=== PATIENT | female | born 1945 | race Asian ===

== ENCOUNTER 2016-04-29 18:17 | Emergency (ER) | payer OTHER ==
[~2016-04-29 18:17] MED LIST: CENTRUM SILVER ULTR1 PO; MAGNESIUM250 M1 PO; METFORMIN HCL500 MG PO; OXYBUTYNIN CHLO15 MG PO; PERCOCET1 TA4 PO; PROPRANOLOL HCL20 MG PO; SUMATRIPTAN SU100 MG PO; TOPIRAMATE50 MG PO; ZOFRAN4 MG PO
== END 2016-04-29 19:46 | disposition home or self-care (01) ==
LOC: ED SRH 18:17
DX: R51 Headache (principal); R10.13 Epigastric pain; R11.2 Nausea with vomiting, unspecified; E11.9 Type 2 diabetes mellitus without complications; Z79.84 Long term (current) use of oral hypoglycemic drugs

== ENCOUNTER 2016-05-30 20:10 | Emergency (ER) | payer OTHER ==
--- NOTE | 2016-05-30 23:49 | DIAGNOSTIC IMAGING REPORT ---
PROCEDURE: XR CHEST 1 VIEW INDICATION: CHEST PAIN TECHNIQUE: Portable AP view (2110 hours). COMPARISON: None. FINDINGS: There is a 1.8 cm parenchymal density right lung base. Lungs are otherwise clear. Heart and mediastinum are normal. Thorax is normal. IMPRESSION: 1. There is a 1.8 cm density at the right lung base. While this could be artifactual or due to scarring, underlying lung nodule might be considered. Follow-up PA and lateral chest x-ray after the patient's acute illness (1-2 weeks) is recommended to confirm resolution. 2. Findings discussed with Dr. Raffaele Gutierrez.
--- NOTE | 2016-05-31 01:56 | ED CLINICAL REPORT ---
Clinical Report - Physicians/Mid Levels [facility] [address] [place] [address] 05/30/2016 20:10 Patient: BASIL LOMBARDI Time Seen: 20:58. Arrived- By private vehicle. Historian- patient, using an telephone exchange operator via language phone. HISTORY OF PRESENT ILLNESS Chief Complaint: CHEST PAIN. This started about 2 days ago and is still present. It was gradual in onset and has been constant and waxing/waning. At its maximum, severity described as 8 / 10. When seen in the E.D., severity described as 8 / 10. It is described as pressure and it is described as located in the central chest area and epigastric area and radiating to the upper back. The patient has had nausea. She has had mild vomiting. The vomiting has occurred only once. No blood-tinged emesis or coffee-grounds emesis. REVIEW OF SYSTEMS The patient has had chills and mild difficulty breathing. No fever, sweats, calf pain or pedal edema. She has had a moderate cough productive of thick, white sputum. No blood tinged sputum or frankly bloody sputum. She has had mild palpitations. It has been similar to previous symptoms. She has had a moderate global headache. The headache has been associated with photophobia. The headache has been similar to previous ones. The patient has a history of migraine headaches. All systems otherwise negative, except as recorded above. PAST HISTORY PCP - name unknown. Problems: Migraine Headache. Diabetes Mellitus. Hypertension. Headache. Medications: Rizatriptan Benzoate Oral 10 mg, 2x a day as needed (out). Tylenol Oral 650 mg, PRN. Benzonatate Oral 100 mg, 3x a day. Centrum Silver Oral 1 daily. Divalproex Sodium Oral (Tablet Delayed Release 500 mg) 1 tablet, daily as needed. Labetalol HCl Oral 200 mg, 2x a day. Magnesium Oral 250mg, daily. MetFORMIN HCl Oral 500 mg, 2x a day. Prochlorperazine Maleate Oral (Tablet 10 mg) 1 tablet, 3x a day. Allergies: No Known Drug Allergy. SOCIAL HISTORY Never smoker. No alcohol use or drug use. FAMILY HISTORY No history of heart disease or aortic aneurysm or dissection. Diabetes in first-degree relative (sibling and a child); cancer in first-degree relative (sibling and a child). No history of heart disease in first-degree relative. ADDITIONAL NOTES The nursing notes have been reviewed. PHYSICAL EXAM Vital Signs: 05/30/2016 20:33 BP: 179/93. HR: 76. RR: 18. O2 saturation: 99%. Temp: 98.1 F. Have been reviewed. Appearance: Alert. No acute distress. Eyes: Pupils equal, round and reactive to light. ENT: Pharynx normal. Neck: Normal inspection. Neck supple. CVS: Normal heart rate and rhythm. Heart sounds normal. Respiratory: No respiratory distress. Breath sounds normal. Abdomen: Soft. Moderate tenderness in the epigastric area (reproducing her chief complaint). Bowel sounds normal. No organomegaly. No mass. Back: Normal external inspection. Skin: Skin warm and dry. Normal skin color. Normal skin turgor. Extremities: Extremities exhibit normal ROM. No calf tenderness. No lower extremity edema. LABS, X-RAYS, AND EKG EKG: Normal EKG. Rate: 73. Prior EKG unavailable. The study has been independently viewed by me. Chest X-ray: (R basilar parenchymal density). The X-rays were interpreted contemporaneously by me and discussed with the radiologist. Laboratory Tests: CPK: (RANJAN: 05/31/2016 00:50) ( [facility] 05/31/2016 01:16) Final results Test Result Flag Units (Reference) CPK 39 U/L (24-260) TROPONIN I <0.05 L ng/mL (0.00-1.5) TROPONIN REFERENCE RANGE:<0.1 NEGATIVE0.1-1.5 INDETERMINANT>1.5 POSITIVE UA-Culture if indicated: (RANJAN: 05/30/2016 22:40) ( MsgRcvd 05/30/2016 23:02) Final results Test Result Flag Units (Reference) URINE COLOR YELLOW URINE APPEARANCE CLEAR URINE GLUCOSE NEGATIVE (NEGATIVE) URINE BILIRUBIN NEGATIVE (NEGATIVE) URINE KETONE NEGATIVE (NEGATIVE) URINE SPECIFIC GRAVITY <= 1.005 L (1.010-1.030) URINE PH 7.0 (5.0-8.0) URINE PROTEIN NEGATIVE (NEGATIVE) URINE UROBILINOGEN 0.2 EU/dL (0.2-1.0) URINE NITRITE NEGATIVE (NEGATIVE) URINE BLOOD NEGATIVE (NEGATIVE) URINE LEUK ESTERASE TRACE (NEGATIVE) URINE RBC RARE rbc/hpf (0-1) URINE WBC RARE wbc/hpf (0-1) URINE EPITHELIAL CELLS NONE SEEN EPI/hpf (0-5) URINE BACTERIA NONE SEEN (NONE SEEN) URINE COMMENT CULTURE INDICATED URINE CULTURES ARE SET-UP BASED ON THE FOLLOWING CRITERIA:POSITIVE NITRITEPOSITIVE LEUKOCYTE ESTERASEGREATER THAN 10 WHITE BLOOD CELLSMODERATE (2+) OR GREATER BACTERIA CBC w Diff: (RANJAN: 05/30/2016 21:00) ( MsgRcvd 05/30/2016 21:08) Final results Test Result Flag Units (Reference) WHITE BLOOD COUNT 7.1 K/uL (4.5-11.5) RED BLOOD COUNT 4.26 M/uL (4.00-5.20) HEMOGLOBIN 12.2 gm/dL (12.0-16.0) HEMATOCRIT 36.1 % (36.0-46.0) MEAN CELL VOLUME 85 fL (80-100) MEAN CORPUSCULAR HGB 29 pg (26-34) MEAN CORPUSCULAR HGB CONC 34 g/dL (31-37) RED CELL DISTRIBUTION WIDTH 12.9 % (11.6-14.8) PLATELET COUNT 238 K/uL (150-400) NEUTROPHIL % 41.3 L % (50-75) LYMPH % 49.4 H % (25-40) MONO % 7.8 % (3-14) EOSINOPHIL % 1.1 % (0-4) BASOPHIL % 0.4 % (0-2) [id number]: (RANJAN: 05/30/2016 21:00) ( MsgRcvd 05/30/2016 22:51) Final results Test Result Flag Units (Reference) D-DIMER QUANTITATIVE 0.40 ug/mLFEU (0.27-0.52) The primary value of this quantitative assay relates toits negative predictive value (i.e. exclusion) of pulmonaryembolism/deep vein thrombosis/DIC.Elevated levels of d-dimer may also occur with:, age, cancer, inflammation, liver disease,post-op, infection, hematoma, coronary disease, peripheralarteriopathy, bleeding disorders and thrombolytic treatment.Results should be correlated with other clinical andradiological data.Testing Methodology: Latex Immunoassay PT with INR: (RANJAN: 05/30/2016 21:00) ( [facility] 05/30/2016 21:15) Final results Test Result Flag Units (Reference) INR 0.9 (0.8-1.2) Low Intensity Therapy: INR 1.5-2.0 PT range 18.5-23.1Mod.Intensity Therapy: INR 2.0-3.0 PT range 23.1-31.5High Intensity Therapy: INR 2.5-3.5 PT range 27.4-35.5High Intensity Therapy 2: INR 3.0-4.0 PT range 31.5-39.3 APTT 28 SECONDS (24-34) BNP: (RANJAN: 05/30/2016 21:00) ( [facility] 05/30/2016 21:26) Final results Test Result Flag Units (Reference) B-TYPE NATRIURETIC PEPTIDE 42.0 pg/ml (5-100) CMP: (RANJAN: 05/30/2016 21:00) ( [facility] 05/30/2016 21:28) Final results Test Result Flag Units (Reference) GLUCOSE 145 H mg/dL (70-110) BUN 22 H mg/dL (7-18) CREATININE 0.9 mg/dL (0.6-1.3) Estimated GFR >60 mL/min Estimated GFR- >60 mL/min Note: Persistent reduction over 3 months in eGFR<60 mL/min/1.73 m2 defines CKD. Patients with eGFR values>=60 mL/min/1.73 m2 may also have CKD if evidence ofpersistent proteinuria. Additional information may be foundat www.[email or web address].org. SODIUM 139 mmol/L (136-145) POTASSIUM 4.0 mmol/L (3.5-5.1) CHLORIDE 104 mmol/L (98-107) CARBON DIOXIDE 25 mmol/L (21-32) CALCIUM 8.9 mg/dL (8.5-10.1) TOTAL PROTEIN 7.1 g/dL (6.4-8.2) ALBUMIN 3.6 g/dL (3.3-5.0) BILIRUBIN, TOTAL 0.3 mg/dL (0.0-1.0) ALKALINE PHOSPHATASE 88 U/L (46-116) AST (SGOT) 13 L U/L (15-37) ALT (SGPT) 18 U/L (12-78) CPK 38 U/L (24-260) TROPONIN I <0.05 L ng/mL (0.00-1.5) TROPONIN REFERENCE RANGE:<0.1 NEGATIVE0.1-1.5 INDETERMINANT>1.5 POSITIVE . PROGRESS AND PROCEDURES Course of Care: Patient is stable. Patient/family counseled. Old medical records reviewed. Disposition: Discharged. Condition: stable. CLINICAL IMPRESSION Pulmonary nodule. Acute headache. Atypical chest pain Hypertension. INSTRUCTIONS No driving or operating machinery while taking medication. Sedative medication was given during your visit. No strenuous activity. Rest. Avoid stimulants (such as cigarettes, coffee, cold medicines, sinus medicines, street drugs). (talk with your doctor about having a repeat chest x-ray in 2-3 weeks to evaluate for any interval change of the right lung base density as discussed.). Warnings: Further evaluation is necessary. GENERAL WARNINGS: Return or contact your physician immediately if your condition worsens or changes unexpectedly, if not improving as expected, or if other problems arise. Your Current Medications: CONTINUE TAKING THE FOLLOWING MEDICATIONS: Benzonatate Oral : 100 mg 3x a day. Centrum Silver Oral : 1 daily. Divalproex Sodium Oral : Tablet Delayed Release 500 mg, 1 tablet daily, prn. Labetalol HCl Oral : 200 mg 2x a day. Magnesium Oral : 250mg daily. MetFORMIN HCl Oral : 500 mg 2x a day. Prochlorperazine Maleate Oral : Tablet 10 mg, 1 tablet 3x a day. Rizatriptan Benzoate Oral : 10 mg 2x a day, prn, out. Tylenol Oral : 650 mg PRN. Prescription Medications: HCTZ 25 mg: Take 1 orally every 24 hours. Dispense fifteen (15). No refills. Follow-up: Follow up with your doctor Thursday in three days. Call for an appointment. Understanding of the discharge instructions verbalized by patient. (Electronically signed by Raffaele Gutierrez MD 06/02/2016 9:14)
--- NOTE | 2016-05-31 01:56 | ED NURSING NOTES ---
Clinical Report - Nurses [facility] [address] [place] [address] 05/30/2016 20:10 Patient: BASIL LOMBARDI TRIAGE Triage time 20:34. Acuity: LEVEL 3. Chief Complaint: DIZZINESS and (Chest pain). --20:43 Goldy Lee R.N. 20:33 05/30/16. BP: 179/93. HR: 76. RR: 18. O2 saturation: 99%. Temp: 98.1 F. Pain level now 12/02. --20:43 Goldy Lee R.N. Weight: 75.7 kg estimated. Height/Length: 63 inches Estimated. BMI: 29.6. --20:42 Goldy Lee R.N. Medications Benzonatate Oral 100 mg, 3x a day. Centrum Silver Oral 1 daily. Divalproex Sodium Oral (Tablet Delayed Release 500 mg) 1 tablet, daily as needed. Labetalol HCl Oral 200 mg, 2x a day. Magnesium Oral 250mg, daily. MetFORMIN HCl Oral 500 mg, 2x a day. Prochlorperazine Maleate Oral (Tablet 10 mg) 1 tablet, 3x a day. --20:41 Goldy Lee R.N. Rizatriptan Benzoate Oral 10 mg, 2x a day as needed (out). Tylenol Oral 650 mg, PRN. --20:41 Goldy Lee R.N. Allergies No Known Drug Allergy. --20:41 Goldy Lee R.N. History Arrived by private vehicle. Historian: family. Accompanied by family. This started yesterday. ( Pt came in with daughter complaining of chest pain that radiates into the back. Pt is also having dizziness with n/v. Pt is kenyan speaking). She has had nausea, a headache and vomiting. 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 SOCIAL HX: Never smoker. No alcohol use or drug use. --20:43 Goldy Lee R.N. PROBLEMS: Migraine Headache. Diabetes Mellitus. Hypertension. Headache. --20:41 Goldy Lee R.N. Interventions ID band on patient. To treatment room. --20:43 Goldy Lee R.N. NURSING PROGRESS NOTES equipment monitor phototypesetting, pulse oximeter and NIBP monitor placed on patient. Head of bed elevated. Two patient identifiers checked. Call light placed in reach. Side rails up x 1. Bed placed in lowest position. Brakes of bed on. KANDY COMA SCORE: [place] Coma Scale: 15- eyes open spontaneously (4); best verbal response- oriented x 4 (5); best motor response- obeys commands (6). --20:44 Goldy Lee R.N. EKG time: (2040 PM). EKG was ordered, performed by a tech and shown to the ED physician. --20:57 Dinorah Lopez 20:52 05/30/2016 Site #1 started via IV in the right antecubital space with an 20g angiocath, with aseptic technique and good blood return; one attempt. Blood drawn: rainbow set. Labeled in the presence of the patient and sent to the lab. Saline lock flushed with 10 mL saline. --21:02 Fiordaliza Staley R.N. 21:07 05/30/2016 Aspirin PO 325 mg given. Allergies verified and confirmed 5 rights. --21:07 Fiordaliza Staley R.N. 22:06 05/30/2016 mylanta 30ml * PO 30 --22:32 Fiordaliza Staley R.N. 22:07 05/30/2016 vis lidocaine * PO 15 --22:32 Fiordaliza Staley R.N. 22:30 05/30/16. Care transferred and report received (from ANGELA Mancera). --22:30 Toshia Faith R.N. Care transferred and report given (ANGELA Mancini). --22:33 Fiordaliza Staley R.N. 22:35 05/30/16. Patient ID band checked for patient name and birthdate: patient confirmed. Instructions provided to collect clean catch urine and patient verbalized understanding. Clean catch urine collected with return of yellow-colored clear urine; sample sent to lab for urinalysis and culture. Specimen labeled in the presence of the patient. --22:51 Toshia Faith R.N. 23:10 05/30/16. BP: 197/106. HR: 78. RR: 20. O2 saturation: 98% on nasal cannula at 2 liters/minute. Pain level now: 10/02. --23:10 Steffany Crook 23:10 05/30/2016 Acetaminophen (APAP) PO Tablets 1000 mg given. Allergies verified and confirmed 5 rights. --23:10 Steffany Crook 00:15 05/31/16. Reassessment after medication administered. She has had no adverse reaction. Overall patient status is the same- she states feels the same. GENERAL / NEURO / PSYCH: A family member reports headache that is moderate in severity and is constant (states complains of persisting headache). --00:15 Toshia Faith R.NRah 00:48 05/31/2016 Clonidine PO Tablets 0.2 mg given. Allergies verified and confirmed 5 rights. --00:51 Toshia Faith R.NRah 00:49 05/31/2016 Zofran (Ondansetron HCl) IVP 4 mg given over 1 minute(s) via site #1. Allergies verified and confirmed 5 rights. IV patency established. IV site checked: no pain, redness, or swelling. IV flushed thoroughly pre- and post-medication administration. IVP given by RN. --00:51 Toshia Faith R.NRah 00:50 05/31/2016 Morphine IVP 3 mg given over 1 minute(s) via site #1. Allergies verified, confirmed 5 rights and sedative warning given to the patient and patient's family. IV patency established. IV site checked: no pain, redness, or swelling. IV flushed thoroughly pre- and post-medication administration. IVP given by RN. --00:51 Toshia Faith R.NRah 00:56 05/31/16. ( Medicated for pain. Family at bedside to confirm and allergies,. lab staff collected additional blood). --00:56 Toshia Faith R.NRah 01:13 05/31/16. BP: 159/89. HR: 90. RR: 18. O2 saturation: 95%. --01:13 Toshia Faith R.N. 01:14 05/31/16. Reassessment after medication administered. She has had no adverse reaction. Overall patient status is improved- she states feels better. GENERAL / NEURO / PSYCH: The patient reports headache is still present but improving and is currently moderate in severity. --01:14 Toshia Faith R.N. 01:51 05/31/16. BP: 162/92. HR: 84. RR: 16. O2 saturation: 94%. --01:51 Toshia Faith R.N. DISPOSITION / DISCHARGE 02:14 05/31/2016 Site #1 removed upon discharge. Catheter intact. Pressure dressing applied. --02:14 Toshia Faith R.N. 02:15 05/31/16. Condition at departure: improved and stable. The goals identified in the patient's plan of care were met. Ability to learn limited by language barrier; teaching performed with the patient and family via family member interpreting. Reviewed medication(s) side effects, precautions, dosing and course information. Prescription(s) given to the patient. Reviewed referral to a primary care physician for followup. Summary of care provided to patient via paper. Patient and family verbalized understanding. Written instructions provided in Yakut and Italian. The patient was discharged home. She left the Emergency Department ambulatory, via private vehicle and (declined wheelchair). Family member driving. FALL RISK ASSESSMENT: Fall risk assessment completed. No fall risk identified. --02:15 Toshia Faith R.N. 02:15 05/31/16. Pain level now 04/04. --02:15 Toshia Faith R.N. 01:50 05/31/16. BP: 162/92. HR: 84. RR: 16. O2 saturation: 94%. 01:12 05/31/16. BP: 159/89. HR: 90. RR: 18. O2 saturation: 95%. 00:56 05/31/16. BP: 172/95. HR: 74. RR: 20. O2 saturation: 95%. Pain level now: 8/10. 23:10 05/30/16. BP: 197/106. HR: 78. RR: 20. O2 saturation: 98% on nasal cannula at 2 liters/minute. Pain level now: 10/02. 22:30 05/30/16. BP: 180/94. HR: 72. RR: 18. O2 saturation: 99%. 20:33 05/30/16. BP: 179/93. HR: 76. RR: 18. O2 saturation: 99%. Temp: 98.1 F. Pain level now 12/02. --02:15 Toshia Faith R.N. Departure time: 02:May 31 2016. --02:15 Toshia Faith R.N. Locked/Released at 05/31/2016 2:15 by Toshia Faith R.N.
--- NOTE | 2016-05-31 01:56 | ED NURSING NOTES ---
Clinical Report - Nurses [facility] [address] [place] [place] [address] 05/30/2016 20:10 Patient: BASIL LOMBARDI TRIAGE Triage time 20:34. Acuity: LEVEL 3. Chief Complaint: DIZZINESS and (Chest pain). --20:43 Goldy Lee R.N. 20:33 05/30/16. BP: 179/93. HR: 76. RR: 18. O2 saturation: 99%. Temp: 98.1 F. Pain level now 12/02. --20:43 Goldy Lee R.N. Weight: 75.7 kg estimated. Height/Length: 63 inches Estimated. BMI: 29.6. --20:42 Goldy Lee R.N. Medications Benzonatate Oral 100 mg, 3x a day. Centrum Silver Oral 1 daily. Divalproex Sodium Oral (Tablet Delayed Release 500 mg) 1 tablet, daily as needed. Labetalol HCl Oral 200 mg, 2x a day. Magnesium Oral 250mg, daily. MetFORMIN HCl Oral 500 mg, 2x a day. Prochlorperazine Maleate Oral (Tablet 10 mg) 1 tablet, 3x a day. --20:41 Goldy Lee R.N. Rizatriptan Benzoate Oral 10 mg, 2x a day as needed (out). Tylenol Oral 650 mg, PRN. --20:41 Goldy Lee R.N. Allergies No Known Drug Allergy. --20:41 Goldy Lee R.N. History Arrived by private vehicle. Historian: family. Accompanied by family. This started yesterday. ( Pt came in with daughter complaining of chest pain that radiates into the back. Pt is also having dizziness with n/v. Pt is botswanan speaking). She has had nausea, a headache and vomiting. 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 SOCIAL HX: Never smoker. No alcohol use or drug use. --20:43 Goldy Lee R.N. PROBLEMS: Migraine Headache. Diabetes Mellitus. Hypertension. Headache. --20:41 Goldy Lee R.N. Interventions ID band on patient. To treatment room. --20:43 Goldy Lee R.N. NURSING PROGRESS NOTES personnel monitor, pulse oximeter and NIBP monitor placed on patient. Head of bed elevated. Two patient identifiers checked. Call light placed in reach. Side rails up x 1. Bed placed in lowest position. Brakes of bed on. KANDY COMA SCORE: [place] Coma Scale: 15- eyes open spontaneously (4); best verbal response- oriented x 4 (5); best motor response- obeys commands (6). --20:44 Goldy Lee R.N. EKG time: (2040 PM). EKG was ordered, performed by a tech and shown to the ED physician. --20:57 Dinorah Lopez 20:52 05/30/2016 Site #1 started via IV in the right antecubital space with an 20g angiocath, with aseptic technique and good blood return; one attempt. Blood drawn: rainbow set. Labeled in the presence of the patient and sent to the lab. Saline lock flushed with 10 mL saline. --21:02 Fiordaliza Staley R.N. 21:07 05/30/2016 Aspirin PO 325 mg given. Allergies verified and confirmed 5 rights. --21:07 Fiordaliza Staley R.N. 22:06 05/30/2016 mylanta 30ml * PO 30 --22:32 Fiordaliza Staley R.N. 22:07 05/30/2016 vis lidocaine * PO 15 --22:32 Fiordaliza Staley R.N. 22:30 05/30/16. Care transferred and report received (from ANGELA Mancera). --22:30 Toshia Faith R.N. Care transferred and report given (ANGELA Mancini). --22:33 Fiordaliza Staley R.N. 22:35 05/30/16. Patient ID band checked for patient name and birthdate: patient confirmed. Instructions provided to collect clean catch urine and patient verbalized understanding. Clean catch urine collected with return of yellow-colored clear urine; sample sent to lab for urinalysis and culture. Specimen labeled in the presence of the patient. --22:51 Toshia Faith R.N. 23:10 05/30/16. BP: 197/106. HR: 78. RR: 20. O2 saturation: 98% on nasal cannula at 2 liters/minute. Pain level now: 10/02. --23:10 Steffany Crook 23:10 05/30/2016 Acetaminophen (APAP) PO Tablets 1000 mg given. Allergies verified and confirmed 5 rights. --23:10 Steffany Crook 00:15 05/31/16. Reassessment after medication administered. She has had no adverse reaction. Overall patient status is the same- she states feels the same. GENERAL / NEURO / PSYCH: A family member reports headache that is moderate in severity and is constant (states complains of persisting headache). --00:15 Toshia Faith R.NRah 00:48 05/31/2016 Clonidine PO Tablets 0.2 mg given. Allergies verified and confirmed 5 rights. --00:51 Toshia Faith R.NRah 00:49 05/31/2016 Zofran (Ondansetron HCl) IVP 4 mg given over 1 minute(s) via site #1. Allergies verified and confirmed 5 rights. IV patency established. IV site checked: no pain, redness, or swelling. IV flushed thoroughly pre- and post-medication administration. IVP given by RN. --00:51 Toshia Faith R.NRah 00:50 05/31/2016 Morphine IVP 3 mg given over 1 minute(s) via site #1. Allergies verified, confirmed 5 rights and sedative warning given to the patient and patient's family. IV patency established. IV site checked: no pain, redness, or swelling. IV flushed thoroughly pre- and post-medication administration. IVP given by RN. --00:51 Toshia Faith R.NRah 00:56 05/31/16. ( Medicated for pain. Family at bedside to confirm and allergies,. lab staff collected additional blood). --00:56 Toshia Faith R.NRah 01:13 05/31/16. BP: 159/89. HR: 90. RR: 18. O2 saturation: 95%. --01:13 Toshia Faith R.N. 01:14 05/31/16. Reassessment after medication administered. She has had no adverse reaction. Overall patient status is improved- she states feels better. GENERAL / NEURO / PSYCH: The patient reports headache is still present but improving and is currently moderate in severity. --01:14 Toshia Faith R.N. 01:51 05/31/16. BP: 162/92. HR: 84. RR: 16. O2 saturation: 94%. --01:51 Toshia Faith R.N. DISPOSITION / DISCHARGE 02:14 05/31/2016 Site #1 removed upon discharge. Catheter intact. Pressure dressing applied. --02:14 Toshia Faith R.N. 02:15 05/31/16. Condition at departure: improved and stable. The goals identified in the patient's plan of care were met. Ability to learn limited by language barrier; teaching performed with the patient and family via family member interpreting. Reviewed medication(s) side effects, precautions, dosing and course information. Prescription(s) given to the patient. Reviewed referral to a primary care physician for followup. Summary of care provided to patient via paper. Patient and family verbalized understanding. Written instructions provided in [place] and Bulgarian. The patient was discharged home. She left the Emergency Department ambulatory, via private vehicle and (declined wheelchair). Family member driving. FALL RISK ASSESSMENT: Fall risk assessment completed. No fall risk identified. --02:15 Toshia Faith R.N. 02:15 05/31/16. Pain level now 04/04. --02:15 Toshia Faith R.N. 01:50 05/31/16. BP: 162/92. HR: 84. RR: 16. O2 saturation: 94%. 01:12 05/31/16. BP: 159/89. HR: 90. RR: 18. O2 saturation: 95%. 00:56 05/31/16. BP: 172/95. HR: 74. RR: 20. O2 saturation: 95%. Pain level now: 8/10. 23:10 05/30/16. BP: 197/106. HR: 78. RR: 20. O2 saturation: 98% on nasal cannula at 2 liters/minute. Pain level now: 10/02. 22:30 05/30/16. BP: 180/94. HR: 72. RR: 18. O2 saturation: 99%. 20:33 05/30/16. BP: 179/93. HR: 76. RR: 18. O2 saturation: 99%. Temp: 98.1 F. Pain level now 12/02. --02:15 Toshia Faith R.N. Departure time: 02:May 31 2016. --02:15 Toshia Faith R.N. Locked/Released at 05/31/2016 2:15 by Toshia Faith R.N.
--- NOTE | 2016-05-31 01:56 | ED CLINICAL REPORT ---
Clinical Report - Physicians/Mid Levels [facility] [address] [place] [address] 05/30/2016 20:10 Patient: BASIL LOMBARDI Time Seen: 20:58. Arrived- By private vehicle. Historian- patient, using an line driver via language phone. HISTORY OF PRESENT ILLNESS Chief Complaint: CHEST PAIN. This started about 2 days ago and is still present. It was gradual in onset and has been constant and waxing/waning. At its maximum, severity described as 8 / 10. When seen in the E.D., severity described as 8 / 10. It is described as pressure and it is described as located in the central chest area and epigastric area and radiating to the upper back. The patient has had nausea. She has had mild vomiting. The vomiting has occurred only once. No blood-tinged emesis or coffee-grounds emesis. REVIEW OF SYSTEMS The patient has had chills and mild difficulty breathing. No fever, sweats, calf pain or pedal edema. She has had a moderate cough productive of thick, white sputum. No blood tinged sputum or frankly bloody sputum. She has had mild palpitations. It has been similar to previous symptoms. She has had a moderate global headache. The headache has been associated with photophobia. The headache has been similar to previous ones. The patient has a history of migraine headaches. All systems otherwise negative, except as recorded above. PAST HISTORY PCP - name unknown. Problems: Migraine Headache. Diabetes Mellitus. Hypertension. Headache. Medications: Rizatriptan Benzoate Oral 10 mg, 2x a day as needed (out). Tylenol Oral 650 mg, PRN. Benzonatate Oral 100 mg, 3x a day. Centrum Silver Oral 1 daily. Divalproex Sodium Oral (Tablet Delayed Release 500 mg) 1 tablet, daily as needed. Labetalol HCl Oral 200 mg, 2x a day. Magnesium Oral 250mg, daily. MetFORMIN HCl Oral 500 mg, 2x a day. Prochlorperazine Maleate Oral (Tablet 10 mg) 1 tablet, 3x a day. Allergies: No Known Drug Allergy. SOCIAL HISTORY Never smoker. No alcohol use or drug use. FAMILY HISTORY No history of heart disease or aortic aneurysm or dissection. Diabetes in first-degree relative (sibling and a child); cancer in first-degree relative (sibling and a child). No history of heart disease in first-degree relative. ADDITIONAL NOTES The nursing notes have been reviewed. PHYSICAL EXAM Vital Signs: 05/30/2016 20:33 BP: 179/93. HR: 76. RR: 18. O2 saturation: 99%. Temp: 98.1 F. Have been reviewed. Appearance: Alert. No acute distress. Eyes: Pupils equal, round and reactive to light. ENT: Pharynx normal. Neck: Normal inspection. Neck supple. CVS: Normal heart rate and rhythm. Heart sounds normal. Respiratory: No respiratory distress. Breath sounds normal. Abdomen: Soft. Moderate tenderness in the epigastric area (reproducing her chief complaint). Bowel sounds normal. No organomegaly. No mass. Back: Normal external inspection. Skin: Skin warm and dry. Normal skin color. Normal skin turgor. Extremities: Extremities exhibit normal ROM. No calf tenderness. No lower extremity edema. LABS, X-RAYS, AND EKG EKG: Normal EKG. Rate: 73. Prior EKG unavailable. The study has been independently viewed by me. Chest X-ray: (R basilar parenchymal density). The X-rays were interpreted contemporaneously by me and discussed with the radiologist. Laboratory Tests: CPK: (RANJAN: 05/31/2016 00:50) ( [facility] Final results Test Result Flag Units (Reference) CPK 39 U/L (24-260) TROPONIN I <0.05 L ng/mL (0.00-1.5) TROPONIN REFERENCE RANGE:<0.1 NEGATIVE0.1-1.5 INDETERMINANT>1.5 POSITIVE UA-Culture if indicated: (RANJAN: 05/30/2016 22:40) ( MsgRcvd 05/30/2016 23:02) Final results Test Result Flag Units (Reference) URINE COLOR YELLOW URINE APPEARANCE CLEAR URINE GLUCOSE NEGATIVE (NEGATIVE) URINE BILIRUBIN NEGATIVE (NEGATIVE) URINE KETONE NEGATIVE (NEGATIVE) URINE SPECIFIC GRAVITY <= 1.005 L (1.010-1.030) URINE PH 7.0 (5.0-8.0) URINE PROTEIN NEGATIVE (NEGATIVE) URINE UROBILINOGEN 0.2 EU/dL (0.2-1.0) URINE NITRITE NEGATIVE (NEGATIVE) URINE BLOOD NEGATIVE (NEGATIVE) URINE LEUK ESTERASE TRACE (NEGATIVE) URINE RBC RARE rbc/hpf (0-1) URINE WBC RARE wbc/hpf (0-1) URINE EPITHELIAL CELLS NONE SEEN EPI/hpf (0-5) URINE BACTERIA NONE SEEN (NONE SEEN) URINE COMMENT CULTURE INDICATED URINE CULTURES ARE SET-UP BASED ON THE FOLLOWING CRITERIA:POSITIVE NITRITEPOSITIVE LEUKOCYTE ESTERASEGREATER THAN 10 WHITE BLOOD CELLSMODERATE (2+) OR GREATER BACTERIA CBC w Diff: (RANJAN: 05/30/2016 21:00) ( MsgRcvd 05/30/2016 21:08) Final results Test Result Flag Units (Reference) WHITE BLOOD COUNT 7.1 K/uL (4.5-11.5) RED BLOOD COUNT 4.26 M/uL (4.00-5.20) HEMOGLOBIN 12.2 gm/dL (12.0-16.0) HEMATOCRIT 36.1 % (36.0-46.0) MEAN CELL VOLUME 85 fL (80-100) MEAN CORPUSCULAR HGB 29 pg (26-34) MEAN CORPUSCULAR HGB CONC 34 g/dL (31-37) RED CELL DISTRIBUTION WIDTH 12.9 % (11.6-14.8) PLATELET COUNT 238 K/uL (150-400) NEUTROPHIL % 41.3 L % (50-75) LYMPH % 49.4 H % (25-40) MONO % 7.8 % (3-14) EOSINOPHIL % 1.1 % (0-4) BASOPHIL % 0.4 % (0-2) [id number]: (RANJAN: 05/30/2016 21:00) ( MsgRcvd 05/30/2016 22:51) Final results Test Result Flag Units (Reference) D-DIMER QUANTITATIVE 0.40 ug/mLFEU (0.27-0.52) The primary value of this quantitative assay relates toits negative predictive value (i.e. exclusion) of pulmonaryembolism/deep vein thrombosis/DIC.Elevated levels of d-dimer may also occur with:, age, cancer, inflammation, liver disease,post-op, infection, hematoma, coronary disease, peripheralarteriopathy, bleeding disorders and thrombolytic treatment.Results should be correlated with other clinical andradiological data.Testing Methodology: Latex Immunoassay PT with INR: (RANJAN: 05/30/2016 21:00) ( [facility] 05/30/2016 21:15) Final results Test Result Flag Units (Reference) INR 0.9 (0.8-1.2) Low Intensity Therapy: INR 1.5-2.0 PT range 18.5-23.1Mod.Intensity Therapy: INR 2.0-3.0 PT range 23.1-31.5High Intensity Therapy: INR 2.5-3.5 PT range 27.4-35.5High Intensity Therapy 2: INR 3.0-4.0 PT range 31.5-39.3 APTT 28 SECONDS (24-34) BNP: (RANJAN: 05/30/2016 21:00) ( [facility] 05/30/2016 21:26) Final results Test Result Flag Units (Reference) B-TYPE NATRIURETIC PEPTIDE 42.0 pg/ml (5-100) CMP: (RANJAN: 05/30/2016 21:00) ( [facility] 05/30/[facility] 21:28) Final results Test Result Flag Units (Reference) GLUCOSE 145 H mg/dL (70-110) BUN 22 H mg/dL (7-18) CREATININE 0.9 mg/dL (0.6-1.3) Estimated GFR >60 mL/min Estimated GFR- >60 mL/min Note: Persistent reduction over 3 months in eGFR<60 mL/min/1.73 m2 defines CKD. Patients with eGFR values>=60 mL/min/1.73 m2 may also have CKD if evidence ofpersistent proteinuria. Additional information may be foundat www.kidney.org. SODIUM 139 mmol/L (136-145) POTASSIUM 4.0 mmol/L (3.5-5.1) CHLORIDE 104 mmol/L (98-107) CARBON DIOXIDE 25 mmol/L (21-32) CALCIUM 8.9 mg/dL (8.5-10.1) TOTAL PROTEIN 7.1 g/dL (6.4-8.2) ALBUMIN 3.6 g/dL (3.3-5.0) BILIRUBIN, TOTAL 0.3 mg/dL (0.0-1.0) ALKALINE PHOSPHATASE 88 U/L (46-116) AST (SGOT) 13 L U/L (15-37) ALT (SGPT) 18 U/L (12-78) CPK 38 U/L (24-260) TROPONIN I <0.05 L ng/mL (0.00-1.5) TROPONIN REFERENCE RANGE:<0.1 NEGATIVE0.1-1.5 INDETERMINANT>1.5 POSITIVE . PROGRESS AND PROCEDURES Course of Care: Patient is stable. Patient/family counseled. Old medical records reviewed. Disposition: Discharged. Condition: stable. CLINICAL IMPRESSION Pulmonary nodule. Acute headache. Atypical chest pain Hypertension. INSTRUCTIONS No driving or operating machinery while taking medication. Sedative medication was given during your visit. No strenuous activity. Rest. Avoid stimulants (such as cigarettes, coffee, cold medicines, sinus medicines, street drugs). (talk with your doctor about having a repeat chest x-ray in 2-3 weeks to evaluate for any interval change of the right lung base density as discussed.). Warnings: Further evaluation is necessary. GENERAL WARNINGS: Return or contact your physician immediately if your condition worsens or changes unexpectedly, if not improving as expected, or if other problems arise. Your Current Medications: CONTINUE TAKING THE FOLLOWING MEDICATIONS: Benzonatate Oral : 100 mg 3x a day. Centrum Silver Oral : 1 daily. Divalproex Sodium Oral : Tablet Delayed Release 500 mg, 1 tablet daily, prn. Labetalol HCl Oral : 200 mg 2x a day. Magnesium Oral : 250mg daily. MetFORMIN HCl Oral : 500 mg 2x a day. Prochlorperazine Maleate Oral : Tablet 10 mg, 1 tablet 3x a day. Rizatriptan Benzoate Oral : 10 mg 2x a day, prn, out. Tylenol Oral : 650 mg PRN. Prescription Medications: HCTZ 25 mg: Take 1 orally every 24 hours. Dispense fifteen (15). No refills. Follow-up: Follow up with your doctor Thursday in three days. Call for an appointment. Understanding of the discharge instructions verbalized by patient. (Electronically signed by Raffaele Gutierrez MD 06/02/2016 9:14)
--- NOTE | 2016-05-31 01:56 | ED ORDER SUMMARY ---
..... 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 per protocol) (Ack 20:34 SRedmond) (20:44 TLewis R.N.) EKG - ER Stat (20:33 05/30/2016 TLewis R.N. per protocol) (Ack 20:34 SRedmond) (20:44 TLewis R.N.) Chest 1V Urgent (20:59 05/30/2016 Karlee POLLARD) (Ack 21:07 Julien) (21:07 Escobarts R.N.) CBC w Diff Urgent (20:59 05/30/2016 Karlee POLLARD) (21:01 Ha R.N.) CMP Urgent (20:59 05/30/2016 Karlee POLLARD) (21:01 Ha R.N.) UA-Culture if indicated Urgent (20:59 05/30/2016 Karlee POLLARD) (Ack 21:07 SRespenser) (0:19 Vernon R.N.) PTT Urgent (20:59 05/30/2016 Karlee POLLARD) (21:01 Ha R.N.) PT with INR Urgent (20:59 05/30/2016 Karlee POLLARD) (21:01 Ha R.N.) CPK Urgent (20:59 05/30/2016 Karlee POLLARD) (21:01 Ha R.N.) Troponin-I Urgent (20:59 05/30/2016 Karlee POLLARD) (21:01 Ha R.N.) BNP Urgent (20:59 05/30/2016 Karlee POLLARD) (21:01 Ha R.N.) Oxygen (2 L/min) (NC) (20:59 05/30/2016 Karlee POLLARD) (21:01 SRoberts R.N.) Pulse oximeter (20:59 05/30/2016 Karlee POLLARD) (21:01 SRoberts R.N.) D-Dimer Urgent (22:37 05/30/2016 Karlee POLLARD) (Ack 22:38 SRedmond) (1:27 EInderbitzen R.N.) Troponin-I (2nd set) Urgent (00:33 05/31/2016 Karlee POLLARD) (Ack 0:35 SRedmond) (1:27 EInderbitzen R.N.) CPK (2nd set) Urgent (00:33 05/31/2016 Karlee POLLARD) (Ack 0:35 SRedmond) (1:27 EInderbitzen R.N.) Valproic Acid (Depakene) Urgent (01:25 05/31/2016 Karlee POLLARD) (1:27 EInderbitzen R.N.) MEDICATION ORDERS: Aspirin PO 325 mg (NOW) (20:59 05/30/2016 Karlee POLLARD) (Ack 21:03 SRoberts R.N.) (21:07 SRoberts R.N.) GI Cocktail WHITE PO 30 mL with Lidocaine Viscous Mouth/Throat 15 mL, Maalox Plus Oral 15 mL (22:13 05/30/2016 Karlee POLLARD) (Ack 22:29 EInderbitzen R.N.) (22:32 SRoberts R.N.) Acetaminophen PO 1,000 mg (NOW) (23:06 05/30/2016 Karlee POLLARD) (Ack 23:07 HSoule) (23:10 HSoule) Clonidine PO 0.2 mg (NOW) (00:34 05/31/2016 Karlee POLLARD) (Ack 0:42 EInderbitzen R.N.) (0:51 EInderbitzen R.N.) IV FLUIDS: IV Saline Lock (20:59 05/30/2016 Karlee POLLARD) (Ack 21:01 SRoberts R.N.) (21:02 SRoberts R.N.) Morphine IV 3 mg (HIGH ALERT MEDICATION, NOW) (00:34 05/31/2016 Karlee POLLARD) (Ack 0:42 EInderbitzen R.N.) (0:51 EInderareliszen R.N.) Zofran IV 4 mg (NOW) (00:34 05/31/2016 Karlee POLLARD) (Ack 0:42 EInderbitzen R.N.) (0:51 EInderbitzen R.N.) ORDER SHEET NOTES: [Electronically signed by Toshia Faith R.N. (02:15 05/31/2016)] [Electronically signed by Raffaele Gutierrez MD (09:14 06/02/2016)] [Electronically locked/signed by Toshia Fatih R.N. (02:15 05/31/2016)]
--- NOTE | 2016-06-02 09:14 | ED MAR SUMMARY ---
..... Medication Administration Record [facility] [address] [place] [address] Patient: BASIL LOMBARDI Visit ID: [id number] 71y, F Weight: 75.7 kg Height/Length: 63 in BMI: 29.6 ALLERGIES: No Known Drug Allergy Given 21:07 05/30/2016 Fiordaliza Staley R.N. Medication Administered: ASPIRIN [PO], Dose: 325 mg PO. Medication Ordered: Aspirin PO 325 mg (NOW). Given 22:05/30/2016 Fiordaliza Staley R.N. Medication Administered: mylanta 30ml *, Dose: 30 * PO. Medication Ordered: GI Cocktail WHITE PO 30 mL with Lidocaine Viscous Mouth/Throat 15 mL, Maalox Plus Oral 15 mL. Given 22:05/30/2016 Fiordaliza Staley R.N. Medication Administered: vis lidocaine *, Dose: 15 * PO. Medication Ordered: GI Cocktail WHITE PO 30 mL with Lidocaine Viscous Mouth/Throat 15 mL, Maalox Plus Oral 15 mL. Given 23:10 05/30/2016 Steffany Crook, Medication Administered: ACETAMINOPHEN [PO] (APAP), Dose: 1000 mg Tablets PO. Medication Ordered: Acetaminophen PO 1,000 mg (NOW). Given 00:48 05/31/2016 Toshia Faith R.N. Medication Administered: CLONIDINE [PO], Dose: 0.2 mg Tablets PO. Medication Ordered: Clonidine PO 0.2 mg (NOW). Given 00:49 05/31/2016 Toshia Faith R.N. Medication Administered: ZOFRAN [IVP] (ONDANSETRON HCL), Dose: 4 mg IVP over 1 minute(s), Site: #1 right AC. Medication Ordered: Zofran IV 4 mg (NOW). Given 00:50 05/31/2016 Toshia aFith R.N. Medication Administered: MORPHINE [IVP], Dose: 3 mg IVP over 1 minute(s), Site: #1 right AC. Medication Ordered: Morphine IV 3 mg (HIGH ALERT MEDICATION, NOW).
--- NOTE | 2016-06-02 09:14 | ED DISCHARGE INSTRUCTIONS ---
Patient: BASIL LOMBARDI General Instructions [facility] VisitID: [id number] [place] [address] 71y, F Registration Date/Time: 05/30/2016 Pulmonary nodule. Acute headache. Atypical chest pain Hypertension. INSTRUCTIONS No driving or operating machinery while taking medication. Sedative medication was given during your visit. No strenuous activity. Rest. Avoid stimulants (such as cigarettes, coffee, cold medicines, sinus medicines, street drugs). (talk with your doctor about having a repeat chest x-ray in 2-3 weeks to evaluate for any interval change of the right lung base density as discussed.). Warnings: Further evaluation is necessary. GENERAL WARNINGS: Return or contact your physician immediately if your condition worsens or changes unexpectedly, if not improving as expected, or if other problems arise. Your Current Medications: CONTINUE TAKING THE FOLLOWING MEDICATIONS: Benzonatate Oral : 100 mg 3x a day. Centrum Silver Oral : 1 daily. Divalproex Sodium Oral : Tablet Delayed Release 500 mg, 1 tablet daily, prn. Labetalol HCl Oral : 200 mg 2x a day. Magnesium Oral : 250mg daily. MetFORMIN HCl Oral : 500 mg 2x a day. Prochlorperazine Maleate Oral : Tablet 10 mg, 1 tablet 3x a day. Rizatriptan Benzoate Oral : 10 mg 2x a day, prn, out. Tylenol Oral : 650 mg PRN. Prescription Medications: HCTZ 25 mg: Take 1 orally every 24 hours. Dispense fifteen (15). No refills. Follow-up: Follow up with your doctor Thursday in three days. Call for an appointment. Understanding of the discharge instructions verbalized by patient. ADDITIONAL INFORMATION Chest Pain, Uncertain Cause Chest pain can happen for a number of reasons. Sometimes the cause can not be determined. If yourcondition does not seem serious, and your pain does not appear to be coming from your heart, your doctor may recommend watching it closely. Sometimes the signs of a serious problem take more time to appear. Therefore, watch for the warning signs listed below. Home care After your visit, follow these recommendations: Rest today and avoid strenuous activity. Take any prescribed medicine as directed. Follow-up care Follow up with your doctor or this facility as instructed or if you do not start to feel better within 24 hours. Call 911 Get immediate medical attention if any of the following occur: A change in the type of pain: if it feels different, becomes more severe, lasts longer, or begins to spread into your shoulder, arm, neck, jaw or back Shortness of breath or increased pain with breathing Weakness, dizziness, or fainting Rapid heart beat Get prompt medical attention Call your doctor right away if any of the following occur: Cough with dark colored sputum (phlegm) or blood Fever of 100.4F(38C) or higher, or as directed by your health care provider Swelling, pain or redness in one leg Pulmonary Nodule A pulmonary nodule is a finding on a chest x-ray. It is usually found on an x-ray taken for other reasons.It is a single lesion up to about an inch in size, surrounded by normal lung tissue. Most nodules are benign (non-cancerous). However, a nodule could be an early stage of primary lung cancer; or, it may be a sign of cancer that has spread from another part of the body (metastatic). Once a nodule is found on a chest x-ray, further testing is needed to determine if it is benign or outpatient to diagnose your nodule. Comparison of todays x-ray to prior x-rays Chest CT scan Bronchoscopy (a procedure that allows the doctor to see the air passages inside the lung) Needle biopsy Test Results: If your nodule proves to be benign, continued follow up over the next five years is usually advised. If the tests cannot tell if your nodule is benign or malignant, then, surgery may be advised. If your tests show your nodule is definitely malignant, surgery will probably be advised. The best survival rates from lung cancer occur when the primary tumor is small (less than one inch). Follow your doctor's advice regarding the timing of further testing. Prompt treatment gives the best chance for curing lung cancer. Prevention Smoking remains one of the greatest risk factors for lung cancer. If you smoke, it is essential that you quit in order to lower your risk of lung cancer. Talk to your doctor about ways to help you quit. Visit the following links for more information: www.smokefree.gov/pubs/clearing_the_air.pdf www.smokefree.gov www.quitnet.com Home Care: Most patients with a pulmonary nodule will have no symptoms. Therefore, no special home care is required.You may resume your usual activities and diet. Follow Up with your doctor or as advised by our staff. Keep your appointments for further testing. You can get more information about lung cancer from the following: [place] [employer] [phone] lung.org National Cancer [place] [phone] www.cancer.gov Return Promptly or contact your doctor if any of the following occur: Fever of 100.4F (38C) or higher, or as directed by your healthcare provider Coughing up blood Chest pain or shortness of breath Unintended weight change Migraine Headache Migraine headaches are related to changes in blood flow to the brain. This causes throbbing or constant pain on one or both sides of the head. The pain may last from a few hours to several days. There is usually nausea, vomiting, sensitivity to light and sound, and blurred vision. A migraine attack may be triggered by emotional stress, hormone changes during the menstrual cycle, oral contraceptives, alcohol use, certain foods containing tyramine, eye strain, weather changes, missing meals, or too little or too much sleep. Home Care For This Headache: 1) If you were given pain medicine for this headache, do not drive yourself home . Arrange for a ride, instead. When you get home, try to sleep. You should feel much better when you wake up. 2) Migraine headaches may improve with an ice pack on the forehead or at the base of the skull. Heat to the back of your neck may relieve any neck spasm. 3) Drink only clear liquids or eat a very light diet to avoid nausea/vomiting until symptoms improve. Preventing Future Headaches: 1) Pay attention to those factors that seem to trigger your headache. Try to avoid them when you can. If you have frequent headaches, it is useful to keep a diary of what you were doing, feeling or eating in the hours before each attack. Show this to your doctor to help find the cause of your headaches. a) If you feel that stress is a factor in your headaches, look at the sources of stress in your life. Find ways to release the build-up of those stresses by using regular exercise, relaxation methods (yoga, meditation), bio-feedback or simply taking time-out for yourself. For more information about this, consult your doctor or go to a local bookstore and review books and tapes on this subject. b) Tyramine is a substance present in the following foods : chocolate, yogurt, all cheeses except cottage cheese and cream cheese. smoked or pickled fish and meat (including carr, caviar, bologna, pepperoni, salami), liver, avocados, bananas, figs, raisins, and red wine. Be aware that these foods may trigger a migraine in some persons. Try taking these foods out of your diet for 1-2 months to see if this reduces headache frequency. Treating Future Attacks: 1) At the first sign of a headache, take time out if possible. Find a quiet, dark, comfortable place to sit or lie down. Let yourself relax or sleep. 2) An ice pack on the forehead or area of greatest pain may help. If you are having muscle spasm and tightness of the neck, a heating pad and massage to this area may be helpful. 3) If you have been prescribed a medicine to stop a migraine headache, use this at the very first warning sign of the headache (aura or initial pain) for best results. Follow Up with your doctor if the headache is not better within the next 24 hours. If you have frequent headaches you should discuss a treatment plan with your primary care doctor. Ask if you can have medicine to take at home the next time you get a bad headache. Poorly controlled chronic headaches may require a referral to a neurologist (headache specialist). Get Prompt Medical Attention if any of the following occur: Your head pain gets worse, or does not improve within 24 hours Repeated vomiting (cant keep liquids down) Sinus or ear or throat pain (not already reported) Fever of 100.4 F (38 C) or higher, or as directed by your healthcare provider Stiff neck Extreme drowsiness, confusion or fainting Dizziness, vertigo (dizziness with spinning sensation) Weakness of an arm or leg or one side of the face Difficulty with speech or vision High Blood Pressure -- New (Begin Tx) Your blood pressure was high enough today to start treatment with medicines. The cause of hypertension is unknown in most cases, but can be controlled with lifestyle changes and/or medicines. Hypertension may cause headache, dizziness, blurred vision, rushing sound in your ears, chest pain or shortness of breath. Sometimes it causes no symptoms at all. However, untreated hypertension increases the risk of heart attack, also known as acute myocardial infarction, or AMI, and stroke. It is a serious health risk and should not be ignored. A normal blood pressure is 120/80 or less. The first (top) number is the "systolic" pressure. The second (bottom) number is the "diastolic" pressure. Hypertension exists when either the top number is 140 or higher, OR the bottom number is 90 or higher on repeated measurements. Home Care: All patients with hypertension should do the following to lower their pressure. If you are on medicines, then these methods may reduce or eliminate your need for medicine in the future. Begin a weight loss program if you are overweight. Reduce your salt intake. Avoid high salt foods (olives, pickles, smoked meats, salted potato chips, etc.). Do not add salt to your food at the table. Use only small amounts of salt when cooking. Begin an exercise program. Discuss with your doctor what type of exercise program would be best for you. It doesn't have to be difficult. Even brisk walking for 20 minutes three times a week is a good form of exercise. Avoid medicines which contain heart stimulants. This includes many cold and sinus decongestant pills and sprays as well as diet pills. Check the warnings about hypertension on the label. Stimulants such as amphetamine or cocaine could be lethal for someone with hypertension. Never take these. Limit your caffeine intake or switch to caffeine-free products. Stop smoking. If you are a long-time smoker, this can be hard. Enroll in a stop-smoking program to improve your chance of success. Talk to your physician about ways to improve your chance of success. Learning how to handle stress better is an important part of any program to lower blood pressure. Learn about relaxation methods such as meditation, yoga, or biofeedback. If medicines were prescribed, take them exactly as directed. Missing doses may cause your blood pressure to get out of control. Consider buying an automatic blood pressure machine (available at many pharmacies). Use this to monitor your blood pressure and report to your doctor. Follow Up: Because a new blood pressure medicine was started today, it is important that you have your blood pressure rechecked to be sure you are responding well and that there are no serious side effects. Unless told otherwise, follow-up with your doctor or this facility within the next THREE DAYS. Get Prompt Medical Attention if any of the following occur: Chest pain or shortness of breath Severe headache Throbbing or rushing sound in the ears Nosebleed Sudden severe abdominal pain Extreme drowsiness, confusion or fainting Dizziness or vertigo (dizziness with spinning sensation) Weakness of an arm or leg or one side of the face Difficulty with speech or vision Hydrochlorothiazide Oral tablet What is this medicine? HYDROCHLOROTHIAZIDE (manjula droe klor oh THYE a zide) is a diuretic. It increases the amount of urine passed, which causes the body to lose salt and water. This medicine is used to treat high blood pressure. It is also reduces the swelling and water retention caused by various medical conditions, such as heart, liver, or kidney disease. How should I use this medicine? Take this medicine by mouth with a glass of water. Follow the directions on the prescription label. Take your medicine at regular intervals. Remember that you will need to pass urine frequently after taking this medicine. Do not take your doses at a time of day that will cause you problems. Do not stop taking your medicine unless your doctor tells you to. Talk to your machinist mechanic regarding the use of this medicine in children. Special care may be needed. What side effects may I notice from receiving this medicine? Side effects that you should report to your doctor or health direct support professional caregiver as soon as possible: allergic reactions such as skin rash or itching, hives, swelling of the lips, mouth, tongue, or throat changes in vision chest pain eye pain fast or irregular heartbeat feeling faint or lightheaded, falls gout attack muscle pain or cramps pain or difficulty when passing urine pain, tingling, numbness in the hands or feet redness, blistering, peeling or loosening of the skin, including inside the mouth unusually weak or tired Side effects that usually do not require medical attention (report to your doctor or health direct support professional caregiver if they continue or are bothersome): change in sex drive or performance dry mouth headache stomach upset What may interact with this medicine? cholestyramine colestipol digoxin dofetilide lithium medicines for blood pressure medicines for diabetes medicines that relax muscles for surgery other diuretics steroid medicines like prednisone or cortisone What if I miss a dose? If you miss a dose, take it as soon as you can. If it is almost time for your next dose, take only that dose. Do not take double or extra doses. Where should I keep my medicine? Keep out of the reach of children. Store at room temperature between 15 and 30 degrees C (59 and 86 degrees F). Do not freeze. Protect from light and moisture. Keep container closed tightly. Throw away any unused medicine after the expiration date. What should I tell my health care provider before I take this medicine? They need to know if you have any of these conditions: diabetes gout immune system problems, like lupus kidney disease or kidney stones liver disease pancreatitis small amount of urine or difficulty passing urine an unusual or allergic reaction to hydrochlorothiazide, sulfa drugs, other medicines, foods, dyes, or preservatives or trying to get breast-feeding What should I watch for while using this medicine? Visit your doctor or health direct support professional caregiver for regular checks on your progress. Check your blood pressure as directed. Ask your doctor or health direct support professional caregiver what your blood pressure should be and when you should contact him or her. You may need to be on a special diet while taking this medicine. Ask your doctor. Check with your doctor or health direct support professional caregiver if you get an attack of severe diarrhea, nausea and vomiting, or if you sweat a lot. The loss of too much body fluid can make it dangerous for you to take this medicine. You may get drowsy or dizzy. Do not drive, use machinery, or do anything that needs mental alertness until you know how this medicine affects you. Do not stand or sit up quickly, especially if you are an older patient. This reduces the risk of dizzy or fainting spells. Alcohol may interfere with the effect of this medicine. Avoid alcoholic drinks. This medicine may affect your blood sugar level. If you have diabetes, check with your doctor or health direct support professional caregiver before changing the dose of your diabetic medicine. This medicine can make you more sensitive to the sun. Keep out of the sun. If you cannot avoid being in the sun, wear protective clothing and use sunscreen. Do not use sun lamps or tanning beds/booths. You have been given the following additional information: Chest Pain, Uncertain Cause Pulmonary Nodule, Solitary Headache, Migraine (Classical) Hypertension, New (Begin Treatment) Hydrochlorothiazide Oral tablet No driving or operating machinery while taking medication. Sedative medication was given during your visit. No strenuous activity. Rest. (Electronically signed by Raffaele Gutierrez MD 06/02/2016 9:14)
--- NOTE | 2016-06-02 09:14 | ED MAR SUMMARY ---
..... Medication Administration Record [facility] [address] [place] [address] Patient: BASIL LOMBARDI Visit ID: [id number] 71y, F Weight: 75.7 kg Height/Length: 63 in BMI: 29.6 ALLERGIES: No Known Drug Allergy Given 21:07 05/30/2016 Fiordaliza Staley R.N. Medication Administered: ASPIRIN [PO], Dose: 325 mg PO. Medication Ordered: Aspirin PO 325 mg (NOW). Given 22:05/30/2016 Fiordaliza Staley R.N. Medication Administered: mylanta 30ml *, Dose: 30 * PO. Medication Ordered: GI Cocktail WHITE PO 30 mL with Lidocaine Viscous Mouth/Throat 15 mL, Maalox Plus Oral 15 mL. Given 22:05/30/2016 Fiordaliza Staley R.N. Medication Administered: vis lidocaine *, Dose: 15 * PO. Medication Ordered: GI Cocktail WHITE PO 30 mL with Lidocaine Viscous Mouth/Throat 15 mL, Maalox Plus Oral 15 mL. Given 23:10 05/30/2016 Steffany Crook, Medication Administered: ACETAMINOPHEN [PO] (APAP), Dose: 1000 mg Tablets PO. Medication Ordered: Acetaminophen PO 1,000 mg (NOW). Given 00:48 05/31/2016 Toshia Faith R.N. Medication Administered: CLONIDINE [PO], Dose: 0.2 mg Tablets PO. Medication Ordered: Clonidine PO 0.2 mg (NOW). Given 00:49 05/31/2016 Toshia Faith R.N. Medication Administered: ZOFRAN [IVP] (ONDANSETRON HCL), Dose: 4 mg IVP over 1 minute(s), Site: #1 right AC. Medication Ordered: Zofran IV 4 mg (NOW). Given 00:50 05/31/2016 Toshia Faith R.N. Medication Administered: MORPHINE [IVP], Dose: 3 mg IVP over 1 minute(s), Site: #1 right AC. Medication Ordered: Morphine IV 3 mg (HIGH ALERT MEDICATION, NOW).
--- NOTE | 2016-06-02 09:15 | ED MED RECONCILIATION SUMMARY ---
Patient: BASIL LOMBARDI Medication Reconciliation Report [facility] VisitID: [id number] [place] [address] 71y, F Registration Date/Time: 05/30/2016 Weight: 75.7 kg Height/Length: 63 in. BMI: 29.6 ALLERGIES: No Known Drug Allergy The patient's Home Medications are listed below: CONTINUE TAKING THE FOLLOWING MEDICATIONS: Benzonatate Oral 100 mg, 3x a day Centrum Silver Oral 1 daily Divalproex Sodium Oral (500 mg) 1 tablet, daily Labetalol HCl Oral 200 mg, 2x a day Magnesium Oral 250mg, daily MetFORMIN HCl Oral 500 mg, 2x a day Prochlorperazine Maleate Oral (10 mg) 1 tablet, 3x a day Rizatriptan Benzoate Oral 10 mg, 2x a day, out Tylenol Oral 650 mg, PRN The source(s) of the original Home Medication information: Not obtained. The following Medications were given to the patient in the Emergency Department: Aspirin [PO] PO 325 mg, administered: 05/30/2016 9:07:00 PM mylanta 30ml PO 30, administered: 05/30/2016 10:06:00 PM vis lidocaine PO 15, administered: 05/30/2016 10:07:00 PM Acetaminophen [PO] PO 1000 mg, administered: 05/30/2016 11:10:00 PM Clonidine [PO] PO 0.2 mg, administered: 05/31/2016 12:48:00 AM Zofran [IVP] IVP 4 mg, administered: 05/31/2016 12:49:00 AM Morphine [IVP] IVP 3 mg, administered: 05/31/2016 12:50:00 AM The following Medications were prescribed to the patient: HCTZ 25 mg: Take 1 orally every 24 hours. Dispense fifteen (15). No refills. -- Raffaele Gutierrez MD
--- NOTE | 2016-06-02 09:15 | ED MED RECONCILIATION SUMMARY ---
Patient: BASIL LOMBARDI Medication Reconciliation Report [facility] VisitID: [id number] [place] [address] 71y, F Registration Date/Time: 05/30/2016 Weight: 75.7 kg Height/Length: 63 in. BMI: 29.6 ALLERGIES: No Known Drug Allergy The patient's Home Medications are listed below: CONTINUE TAKING THE FOLLOWING MEDICATIONS: Benzonatate Oral 100 mg, 3x a day Centrum Silver Oral 1 daily Divalproex Sodium Oral (500 mg) 1 tablet, daily Labetalol HCl Oral 200 mg, 2x a day Magnesium Oral 250mg, daily MetFORMIN HCl Oral 500 mg, 2x a day Prochlorperazine Maleate Oral (10 mg) 1 tablet, 3x a day Rizatriptan Benzoate Oral 10 mg, 2x a day, out Tylenol Oral 650 mg, PRN The source(s) of the original Home Medication information: Not obtained. The following Medications were given to the patient in the Emergency Department: Aspirin [PO] PO 325 mg, administered: 05/30/2016 9:07:00 PM mylanta 30ml PO 30, administered: 05/30/2016 10:06:00 PM vis lidocaine PO 15, administered: 05/30/2016 10:07:00 PM Acetaminophen [PO] PO 1000 mg, administered: 05/30/2016 11:10:00 PM Clonidine [PO] PO 0.2 mg, administered: 05/31/2016 12:48:00 AM Zofran [IVP] IVP 4 mg, administered: 05/31/2016 12:49:00 AM Morphine [IVP] IVP 3 mg, administered: 05/31/2016 12:50:00 AM The following Medications were prescribed to the patient: HCTZ 25 mg: Take 1 orally every 24 hours. Dispense fifteen (15). No refills. -- Raffaele Gutierrez MD
== END 2016-05-31 02:15 | disposition home or self-care (01) ==
LOC: ED SRH 20:10
DX: R91.1 Solitary pulmonary nodule (principal); R07.89 Other chest pain; R51 Headache; I10 Essential (primary) hypertension; E11.9 Type 2 diabetes mellitus without complications; Z79.84 Long term (current) use of oral hypoglycemic drugs; Z79.899 Other long term (current) drug therapy
CPT/HCPCS: 90004; 90074; 90100; 90469; 90616; 91285; 91320; 91556; 92610; 94001; 94060; 95059

== ENCOUNTER 2016-06-02 13:27 | Emergency (ER) | payer OTHER ==
--- NOTE | 2016-06-02 14:45 | DIAGNOSTIC IMAGING REPORT ---
PROCEDURE: CT HEAD WITHOUT CONTRAST INDICATION: HEADACHE TECHNIQUE: Noncontrast axial images with sagittal and coronal reformations. COMPARISON: None. FINDINGS: Normal sulci and ventricular system. Minor white matter chronic ischemic changes. No evidence of acute intracranial process. Visualized mastoids and sinuses are clear. IMPRESSION: 1. No acute intracranial abnormality 2. Minor white matter chronic ischemic changes 3. Findings discussed with Dr. Gutierrez at 02:44 p.m., [place] Standard Time
--- NOTE | 2016-06-02 15:09 | DIAGNOSTIC IMAGING REPORT ---
PROCEDURE: XR CHEST 1 VIEW INDICATION: EPIGASTRIC PAIN TECHNIQUE: Portable AP view 02:14 p.m. COMPARISON: Chest x-ray 05/30/2016 FINDINGS: Persistent 1.8 cm right basilar opacity. Left lung is clear. Heart and mediastinum are normal. Thorax is normal. IMPRESSION: 1. Persistent 1.8 cm right basilar opacity. Recommend CT chest for further evaluation. 2. Results discussed with Dr. Gutierrez
--- NOTE | 2016-06-02 16:34 | DIAGNOSTIC IMAGING REPORT ---
PROCEDURE: CT THORAX WITH CONTRAST INDICATION: NODULE TECHNIQUE: 125 ml of Isovue 300 was injected intravenously and axial images were obtained of the chest with coronal and sagittal reformations. COMPARISON: Chest x-ray 06/02/2016 and 05/30/2016 FINDINGS: The thyroid gland demonstrates mild left lobe enlargement and heterogeneous attenuation suggestive of multiple nodules. Thoracic aorta is normal caliber with trace atherosclerotic calcification. The great vessels demonstrates normal branching pattern. The central pulmonary arteries are normal caliber. Heart size is moderately diffusely enlarged. Trace pericardial thickening. No pericardial effusion. No adenopathy or mediastinal masses. The esophagus is normal in caliber without hiatal hernia. The airway is patent and branches normally. Moderate biapical interstitial scarring. Bilateral upper lobe, peripheral micronodular parenchymal pattern without dominant nodule or consolidation. A few scattered subpleural nodules are seen in the lingula and right middle lobe. No pleural effusions or pneumothorax. Degenerative change in the right shoulder. 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 Simple cyst in the inferior aspect of the right lobe of the liver. IMPRESSION: 1. No right lower lung abnormalities. 2. Bilateral upper lobe micronodular parenchymal pattern and mild biapical interstitial scarring. Findings are suggestive of an atypical infectious or inflammatory process, hypersensitivity, exposure related, fungal, tuberculous, atypical viral. Clinical correlation is recommended. 3. Nodular, slightly enlarged left thyroid lobe. Consider thyroid ultrasound. 4. Left nephrectomy. 5. Discussed with Dr. Gutierrez in the emergency room.
--- NOTE | 2016-06-02 18:40 | ED CLINICAL REPORT ---
Clinical Report - Physicians/Mid Levels [facility] [address] [place] [address] 06/02/2016 13:27 Patient: BASIL LOMBARDI Time Seen: 13:48. Arrived- By private vehicle. Historian- patient and daughter. HISTORY OF PRESENT ILLNESS Chief Complaint: HEADACHE. Is still present. This started several days ago. It was gradual in onset and has been constant. It is described as similar to previous headaches and "pain". Described as a global headache, located in the left hemicranial region and has had neck pain (radiating down from her head). At its maximum, severity described as severe. When seen in the E.D., severity described as severe. The patient has had blurred vision, photophobia and nausea. No numbness, weakness or vomiting. Similar symptoms previously: Many times, chronically. Diagnosis: migraine. ( she reports that she has been having headaches like this since she was 15 yo). Recent medical care: The patient was seen recently at this facility. Seen for similar symptoms. Diagnosis: migraine. REVIEW OF SYSTEMS No calf pain, chest pain, cough, difficulty breathing or pedal edema. No diarrhea, nausea or vomiting. She has had palpitations, moderate abdominal pain. The pain is described as located in the epigastrium and urgency and frequency. All systems otherwise negative, except as recorded above. PAST HISTORY Problems: Atypical Chest Pain. Pulmonary Nodule. Migraine Headache. Diabetes Mellitus. Hypertension. Headache. Additional Surgeries: no known surgeries. Medications: Hydrochlorothiazide Oral (Tablet 25 mg), daily. Topiramate Oral (Tablet 50 mg) 1/2 tablet, 2x a day. Centrum Silver Oral 1 daily. Divalproex Sodium Oral (Tablet Delayed Release 500 mg) 1 tablet, daily as needed. Magnesium Oral 250mg, daily. MetFORMIN HCl Oral 500 mg, 2x a day. Prochlorperazine Maleate Oral (Tablet 10 mg) 1 tablet, 3x a day. Rizatriptan Benzoate Oral 10 mg, 2x a day as needed (out). Tylenol Oral 650 mg, PRN. Allergies: No Known Drug Allergy. SOCIAL HISTORY Never smoker. No alcohol use or drug use. FAMILY HISTORY Denies family medical history. ADDITIONAL NOTES The nursing notes have been reviewed. PHYSICAL EXAM Vital Signs: 06/02/2016 13:36 HR: 77. RR: 20. O2 saturation: 97%. Temp: 98.0 F. Have been reviewed. Appearance: Alert. No acute distress. Eyes: Pupils equal, round and reactive to light. Eyes normal inspection. No photophobia. ENT: Pharynx normal. Neck: Normal inspection. Neck supple. No meningeal signs or carotid bruit. CVS: Normal heart rate and rhythm. Heart sounds normal. Respiratory: No respiratory distress. Breath sounds normal. Abdomen: Soft and nontender. No organomegaly. Back: Normal inspection. No CVA tenderness. Skin: Skin warm and dry. Normal skin color. Normal skin turgor. Extremities: Extremities exhibit normal ROM. No lower extremity edema. Neuro: Alert. Mood/affect normal. Speech normal. Cranial nerves normal (as tested). No cerebellar findings. No motor deficit. No sensory deficit. LABS, X-RAYS, AND EKG EKG: Normal EKG. EKG unchanged when compared with prior EKG. (12 Oct 2015). Chest X-ray: (persistent right lung base density when compared with study of 05/30/2016.). The X-rays were independently viewed by me. CT Head: No acute changes. The study was interpreted contemporaneously by me and discussed with the radiologist. Chest CT: (IMPRESSION: 1. No right lower lung abnormalities. 2. Bilateral upper lobe micronodular parenchymal pattern and mild biapical interstitial scarring. Findings are suggestive of an atypical infectious or inflammatory process, hypersensitivity, exposure related, fungal, tuberculous, atypical viral. Clinical correlation is recommended. 3. Nodular, slightly enlarged left thyroid lobe. Consider thyroid ultrasound. 4. Left nephrectomy.). The study was interpreted contemporaneously by me and discussed with the radiologist. Laboratory Tests: UA-Culture if indicated: (RANJAN: 06/02/2016 13:59) ( MsgRcvd 06/02/2016 14:19) Final results Test Result Flag Units (Reference) URINE COLOR YELLOW URINE APPEARANCE CLEAR URINE GLUCOSE NEGATIVE (NEGATIVE) URINE BILIRUBIN NEGATIVE (NEGATIVE) URINE KETONE NEGATIVE (NEGATIVE) URINE SPECIFIC GRAVITY 1.010 (1.010-1.030) URINE PH 5.5 (5.0-8.0) URINE PROTEIN NEGATIVE (NEGATIVE) URINE UROBILINOGEN 0.2 EU/dL (0.2-1.0) URINE NITRITE NEGATIVE (NEGATIVE) URINE BLOOD 1+ (NEGATIVE) URINE LEUK ESTERASE NEGATIVE (NEGATIVE) URINE RBC 3-5 rbc/hpf (0-1) URINE WBC NONE SEEN wbc/hpf (0-1) URINE EPITHELIAL CELLS NONE SEEN EPI/hpf (0-5) URINE BACTERIA NONE SEEN (NONE SEEN) URINE COMMENT CULT NOT INDICATED URINE CULTURES ARE SET-UP BASED ON THE FOLLOWING CRITERIA:POSITIVE NITRITEPOSITIVE LEUKOCYTE ESTERASEGREATER THAN 10 WHITE BLOOD CELLSMODERATE (2+) OR GREATER BACTERIA CBC w Diff: (RANJAN: 06/02/2016 14:14) ( MsgRcvd 06/02/2016 14:21) Final results Test Result Flag Units (Reference) WHITE BLOOD COUNT 5.7 K/uL (4.5-11.5) RED BLOOD COUNT 4.33 M/uL (4.00-5.20) HEMOGLOBIN 12.5 gm/dL (12.0-16.0) HEMATOCRIT 36.5 % (36.0-46.0) MEAN CELL VOLUME 84 fL (80-100) MEAN CORPUSCULAR HGB 29 pg (26-34) MEAN CORPUSCULAR HGB CONC 34 g/dL (31-37) RED CELL DISTRIBUTION WIDTH 12.5 % (11.6-14.8) PLATELET COUNT 232 K/uL (150-400) NEUTROPHIL % 54.1 % (50-75) LYMPH % 37.9 % (25-40) MONO % 7.0 % (3-14) EOSINOPHIL % 0.6 % (0-4) BASOPHIL % 0.4 % (0-2) PT with INR: (RANJAN: 06/02/2016 14:14) ( MsgRcvd 06/02/2016 14:30) Final results Test Result Flag Units (Reference) INR 1.0 (0.8-1.2) Low Intensity Therapy: INR 1.5-2.0 PT range 18.5-23.1Mod.Intensity Therapy: INR 2.0-3.0 PT range 23.1-31.5High Intensity Therapy: INR 2.5-3.5 PT range 27.4-35.5High Intensity Therapy 2: INR 3.0-4.0 PT range 31.5-39.3 APTT 28 SECONDS (24-34) CMP: (RANJAN: 06/02/2016 14:14) ( MsgRcvd 06/02/2016 14:39) Final results Test Result Flag Units (Reference) GLUCOSE 181 H mg/dL (70-110) BUN 21 H mg/dL (7-18) CREATININE 0.9 mg/dL (0.6-1.3) Estimated GFR >60 mL/min Estimated GFR- >60 mL/min Note: Persistent reduction over 3 months in eGFR<60 mL/min/1.73 m2 defines CKD. Patients with eGFR values>=60 mL/min/1.73 m2 may also have CKD if evidence ofpersistent proteinuria. Additional information may be foundat www.kidney.org. SODIUM 138 mmol/L (136-145) POTASSIUM 3.9 mmol/L (3.5-5.1) CHLORIDE 99 mmol/L (98-107) CARBON DIOXIDE 30 mmol/L (21-32) CALCIUM 9.2 mg/dL (8.5-10.1) TOTAL PROTEIN 7.5 g/dL (6.4-8.2) ALBUMIN 3.7 g/dL (3.3-5.0) BILIRUBIN, TOTAL 0.5 mg/dL (0.0-1.0) ALKALINE PHOSPHATASE 91 U/L (46-116) AST (SGOT) 12 L U/L (15-37) ALT (SGPT) 14 U/L (12-78) LIPASE 96 U/L (73-393) AMYLASE 41 U/L (25-115) . PROGRESS AND PROCEDURES Course of Care: Symptoms better. Vital signs have been reviewed. Alert. No acute distress. Breath sounds normal. No respiratory distress. Normal heart rate and rhythm. Heart sounds normal. Abdomen soft and nontender. Skin warm and dry. Patient/family counseled. Old medical records reviewed. Disposition: Discharged. Condition: stable. CLINICAL IMPRESSION Chronic migraine headache- poorly controlled and refractory to treatment. Acute gastritis Bilateral upper lobe micronodular parenchymal pattern and mild biapical interstitial scarring. INSTRUCTIONS No driving or operating machinery while taking medication. Sedative medication was given during your visit. Avoid alcohol and NSAIDS. Examples of NSAIDS include aspirin, ibuprofen (Advil) and naproxen (Aleve). Avoid salty and spicy foods. (Do not take your metformin for 2 days as discussed.). Warnings: Further evaluation is necessary. GENERAL WARNINGS: Return or contact your physician immediately if your condition worsens or changes unexpectedly, if not improving as expected, or if other problems arise. Your Current Medications: STOP TAKING THE FOLLOWING MEDICATIONS: MetFORMIN HCl Oral : 500 mg 2x a day. CONTINUE TAKING THE FOLLOWING MEDICATIONS: Centrum Silver Oral : 1 daily. Divalproex Sodium Oral : Tablet Delayed Release 500 mg, 1 tablet daily, prn. Hydrochlorothiazide Oral : Tablet 25 mg, daily. Magnesium Oral : 250mg daily. Prochlorperazine Maleate Oral : Tablet 10 mg, 1 tablet 3x a day. Rizatriptan Benzoate Oral : 10 mg 2x a day, prn, out. Topiramate Oral : Tablet 50 mg, 1/2 tablet 2x a day. Tylenol Oral : 650 mg PRN. Prescription Medications: Omeprazole 20 mg capsules: Take 1 orally once daily. Dispense fifteen (15). No refills. Follow-up: Follow up with a production corrugator, sap bw consultant and neurologist- as recommended by your primary care physician. Understanding of the discharge instructions verbalized by patient and family. (Electronically signed by Raffaele Gutierrez MD 06/02/2016 20:15)
--- NOTE | 2016-06-02 18:40 | ED NURSING NOTES ---
Clinical Report - Nurses [facility] [address] [place] [address] 06/02/2016 13:27 Patient: BASIL LOMBARDI TRIAGE Triage time 13:36. Acuity: LEVEL 4. Chief Complaint: HEADACHE and MIGRAINE HEADACHE and VOMITING. Alert. --13:43 Shantell Vallejo R.N. 13:36 06/02/16. HR: 77. RR: 20. O2 saturation: 97%. Temp: 98.0 F. Pain level now 12/02. --13:43 Shantell Vallejo R.N. Weight: 79.3 kg stated. Height/Length: 61 inches Per Patient. BMI: 33. --13:41 Shantell Vallejo R.N. Medications Centrum Silver Oral 1 daily. Divalproex Sodium Oral (Tablet Delayed Release 500 mg) 1 tablet, daily as needed. Magnesium Oral 250mg, daily. MetFORMIN HCl Oral 500 mg, 2x a day. Prochlorperazine Maleate Oral (Tablet 10 mg) 1 tablet, 3x a day. Rizatriptan Benzoate Oral 10 mg, 2x a day as needed (out). Tylenol Oral 650 mg, PRN. --13:37 Shantell Vallejo R.N. Topiramate Oral (Tablet 50 mg) 1/2 tablet, 2x a day. --14:19 Jacquie Rick R.N. Hydrochlorothiazide Oral (Tablet 25 mg), daily. --14:23 Jacquie Rick R.N. The following entry was struck by Jacquie Rick R.N., 14:24 (06/02/16) Reason - other. <<STRICKEN ENTRY-- Benzonatate Oral 100 mg, 3x a day. --13:37 Shantell Vallejo R.N. --END STRIKE>> The following entry was struck by Jacquie Rick R.N., 14:19 (06/02/16) Reason - other. <<STRICKEN ENTRY-- Labetalol HCl Oral 200 mg, 2x a day. --13:37 Shantell Vallejo R.N. --END STRIKE>>. Allergies No Known Drug Allergy. --13:37 Shantell Vallejo R.N. History Arrived by private vehicle. Historian: family. Accompanied by family. Primary physician (none). This started about 2 days ago. 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 PAST MEDICAL HX: Diabetes mellitus. SOCIAL HX: Never smoker. No alcohol use or drug use. --13:43 Shantell Vallejo R.N. PROBLEMS: Atypical Chest Pain. Migraine Headache. Diabetes Mellitus. Hypertension. Headache. --13:37 Shantell Vallejo R.N. The following entry was modified by Raffaele Gutierrez MD, 16:49 Reason - Struck from template <<STRICKEN ENTRY-- Pulmonary Nodule. --16:49 Raffaele Gutierrez MD --END STRIKE>>. ADDITIONAL SURGERIES: no known surgeries. PHYSICAL ASSESSMENT Ambulatory to room. GENERAL / NEURO / PSYCH: Alert. Oriented X 4. RESPIRATORY: Respirations not labored. CVS: Capillary refill less than 2 seconds. --13:43 Shantell Vallejo R.N. NURSING PROGRESS NOTES Patient gowned. Two patient identifiers checked. Call light placed in reach. Patient ready for evaluation- ED physician notified. --13:44 Shantell Vallejo R.N. EKG time: (14:04). EKG was performed by a tech and shown to the ED physician. --14:04 Gosia Ritter 14:14 06/02/2016 Site #1 started via IV in the right antecubital space with an 20g angiocath; one attempt. Blood drawn: rainbow set. Labeled in the presence of the patient and sent to the lab. --14:14 Jacquie Rick R.N. Patient transported to CT by stretcher. --14:25 Jacquie Rick R.N. Cardiac rhythm: normal sinus rhythm. Oxygen administered. Reassurance given. Lights dimmed. The patient is calm. Overall patient status is the same- she states feels the same. ( Zambian speaking pt and family, here due to "unable to take my H/A and I have epigastric pain with palpitations, nauseas. Pt does have a follow-up on the ). GENERAL / NEURO / PSYCH: The patient reports headache. Alert. Oriented X 4. Appears in pain and anxious. HEENT: The patient reports eye pain. The patient reports neck pain. RESPIRATORY: No respiratory distress. GI / : The patient reports nausea. SKIN: Skin is warm and dry. Skin color within normal limits. Patient returned from CT by stretcher. Two patient identifiers checked. Call light placed in reach. Side rails up x 2. Bed placed in lowest position. Brakes of bed on. --14:36 Jacquie Rick R.N. 14:27 06/02/16. BP: 176/92. HR: 71. RR: 15. O2 saturation: 95%. Temp: 97.5 F (oral). Pain level now: 12/02. --14:36 Jacquie Rick R.N. 14:45 06/02/2016 Zofran (Ondansetron HCl) IVP 4 mg given over 2 minute(s) via site #1. Allergies verified and confirmed 5 rights. IV patency established. IV site checked: no pain, redness, or swelling. IV flushed thoroughly pre- and post-medication administration. IVP given by RN. --14:47 Jacquie Rick R.N. 14:46 06/02/2016 Started bag #1 1000 mL IV Fluids IV NS (Saline); at 500 mL/hr over 1 hour(s) via site #1 via IV pump. Allergies verified and confirmed 5 rights. IV patency established. IV site checked: no pain, redness, or swelling. IV flushed thoroughly pre- and post-medication administration. Completed per protocol. --14:46 Jacquie Rick R.N. 14:46 06/02/2016 Dilaudid (HYDROmorphone HCl PF) IVP 0.5 mg given over 1 minute(s) via site #1. Allergies verified, confirmed 5 rights and sedative warning given to the patient and patient's family. IV patency established. IV site checked: no pain, redness, or swelling. IV flushed thoroughly pre- and post-medication administration. IVP given by RN. --14:46 Jacquie Rick R.N. 14:57 06/02/2016 GI COCKTAIL WHITE (Simethicone) PO Oral Suspension 30 mL given. Allergies verified and confirmed 5 rights. --14:57 Jacquie Rick R.N. 15:00 06/02/16. BP: 173/87 (regular adult cuff) taken on the left arm, via an automated monitor, while lying. HR: 65. RR: 14. O2 saturation: 97% on room air. Pain level now: 10/02. --15:46 Jacquie Rick R.N. late entry - 15:00 PM. Reassessment after oxygen and fluids administered. She is calm and resting quietly and has had no adverse reaction. Overall patient status is the same- she states feels the same. GENERAL / NEURO / PSYCH: The patient reports headache. Denies numbness. Alert. Oriented X 4. HEENT: The patient reports eye pain. The patient reports neck pain. --15:46 Jacquie Rick R.N. 15:00 06/02/2016 Dilaudid IVP Response: no adverse reaction symptoms are the same. The patient feels the same. --15:47 Jacquie Rick R.N. 15:52 06/02/2016 Dilaudid (HYDROmorphone HCl PF) IVP 0.5 mg given over 1 hour(s) via site #1. Allergies verified, confirmed 5 rights and sedative warning given to the patient and patient's family. IV patency established. IV site checked: no pain, redness, or swelling. IV flushed thoroughly pre- and post-medication administration. IVP given by RN. --15:52 Jacquie Rick R.N. 15:53 06/02/16. BP: 183/85 (regular adult cuff) taken on the left arm, via an automated monitor, while lying. HR: 69. RR: 15. O2 saturation: 96% on nasal cannula at 2 liters/minute. Pain level now: 10/02. --15:54 Jacquie Rick R.N. Cardiac rhythm: normal sinus rhythm. The patient is calm. Overall patient status is the same- she states feels the same. ( Dilaudid repeated as ordered. Will monitor). GENERAL / NEURO / PSYCH: The patient reports headache. --15:54 Jacquie Rick R.N. 16:26 06/02/2016 Clonidine PO Tablets 0.2 mg given. Allergies verified and confirmed 5 rights. --16:26 Jacquie Rick R.N. 16:27 06/02/16. BP: 162/85. HR: 64. RR: 13. O2 saturation: 98% on nasal cannula at 2 liters/minute. Pain level now: 08/02. --16:27 Jacquie Rick R.N. Cardiac rhythm: normal sinus rhythm. Oxygen administered. ekg monitor tech, pulse oximeter and NIBP monitor placed on patient. Reassessment after fluids administered. She is calm and resting quietly and has had no adverse reaction. Overall patient status is improved- she states feels better. GENERAL / NEURO / PSYCH: The patient reports headache. Patient identifiers checked. Call light placed in reach. --16:27 Jacquie Rick R.N. 15:30 06/02/2016 GI COCKTAIL WHITE PO Response: no adverse reaction. --16:30 Jacquie Rick R.N. 15:30 06/02/2016 IV Fluids IV NS Discontinued: bag #1 infused. Total amount infused: 500 mL. IV patency established. IV site checked: no pain, redness, or swelling. IV flushed thoroughly. --16:30 Jacquie Rick R.N. 16:30 06/02/2016 Dilaudid IVP Response: no adverse reaction pain is improving. --16:30 Jacquie Rick R.N. ( MD aware of high BP, meds given as ordered. Pt states "feeling better, H/A" Epigastric pain "better"). --16:32 Jacquie Rick R.N. 17:55 06/02/16. BP: 162/88 (regular adult cuff) taken on the left arm, via an automated monitor, while lying. HR: 69. RR: 12. O2 saturation: 96% on room air. Temp: 98.2 F (oral). Pain level now: 11/02. --18:00 Jacquie Rick R.N. Cardiac rhythm: normal sinus rhythm. Reassurance given. Reassessment after fluids administered and medication administered. She is calm and has had no adverse reaction. Overall patient status is improved- she states feels the same. ( Dr. Gutierrez at bedside, explanation given as to importance of follow-up with primary doctor, I translated (ANGELA Rick). Pt and daughter verbalizes understanding. Pt still complaining of H/A denies any gastritis symptoms. Will give vicodin as ordered). GENERAL / NEURO / PSYCH: The patient reports headache. Patient identifiers checked. Call light placed in reach. --18:00 Jacquie Rick R.N. 18:01 06/02/2016 Clonidine PO Response: no adverse reaction. --18:01 Jacquie Rick R.N. 18:10 06/02/2016 Hydrocodone-APAP (Hydrocodone-Acetaminophen) PO 5/325 mg Tablets 1 tab given. Allergies verified, confirmed 5 rights and sedative warning given to the patient. --18:41 Jacquie Rick R.N. 18:45 06/02/2016 Hydrocodone-APAP PO Response: no adverse reaction. --19:19 Jacquie Rick R.N. DISPOSITION / DISCHARGE 18:55 06/02/2016 Site #1 removed upon discharge. Catheter intact. Manual pressure and bandaid applied. --19:12 Jacquie Rick R.N. Cardiac rhythm: normal sinus rhythm. Departure time: 1851 PM. Condition at departure: improved and stable. The goals identified in the patient's plan of care were met. No learning barriers present. Discharge instructions provided and reviewed with the patient. Reviewed medication(s) side effects, precautions, dosing and course information. Prescription(s) given to the patient. Reviewed bland diet and need for increased fluid intake. Activity restrictions (rest) reviewed. Patient and family verbalized understanding. Written instructions provided in [place]an. ( Pt and family verbalizes understanding of discharge instructions and importance of following up with primary, foods reviewed of what to avoid. Pt instructed to stop metformin for 2 days. Pt was nauseas before leaving, vomited x1 and as per family has been ongoing. Feeling better). The patient was discharged by the physician. She was discharged home and accompanied by family. She left the Emergency Department ambulatory and via private vehicle. Family member driving. FALL RISK ASSESSMENT: Fall risk assessment completed. No fall risk identified. --19:19 Jacquie Rick R.N. 18:50 06/02/16. BP: 162/87. HR: 67 (regular). RR: 12. O2 saturation: 97% on room air. Temp: 98.2 F (oral). Pain level now: 08/02. --19:19 Jacquie Rick R.N. Locked/Released at 06/02/2016 19:20 by Jacquie Rick R.N.
--- NOTE | 2016-06-02 18:40 | ED ORDER SUMMARY ---
..... Patient: BASIL LOMBARDI OrderSheet [facility] VisitID: [id number] [place] [address] 71y, F Registration Date/Time: 06/02/2016 ORDER SHEET Weight: 79.3 kg (stated) Allergies: No Known Drug Allergy GENERAL ORDERS: Chest 1V Urgent (13:50 06/02/2016 Karlee POLLARD) (Ack 13:52 Ashley) (14:14 EHassan R.N.) Lapel Baster (Continuous) (13:51 06/02/2016 Karlee POLLARD) (14:26 EHassan R.N.) CT Head wo Cont Urgent (13:51 06/02/2016 Karlee POLLARD) (Ack 13:52 Ashley) (14:25 PBoepanchoner) CBC w Diff Urgent (13:51 06/02/2016 Karlee POLLARD) (Ack 13:52 Ashley) (14:14 EHassan R.N.) CMP Urgent (13:51 06/02/2016 Karlee POLLARD) (Ack 13:52 Ashley) (14:14 EHassan R.N.) UA-Culture if indicated Urgent (13:51 06/02/2016 Karlee POLLARD) (Ack 13:52 Ashley) (Sent 14:04 EHassan R.N.) (14:14 EHassan R.N.) Amylase Urgent (13:51 06/02/2016 Karlee POLLARD) (Ack 13:52 Ashley) (14:14 EHassan R.N.) Lipase Urgent (13:51 06/02/2016 Karlee POLLARD) (Ack 13:52 Ashley) (14:14 EHassan R.N.) PT with INR Urgent (13:51 06/02/2016 Karlee POLLARD) (Ack 13:52 Ashley) (14:14 EHassarafal R.N.) PTT Urgent (13:51 06/02/2016 Karlee POLLARD) (Ack 13:52 Ashley) (14:14 EHassan R.N.) Oxygen (2 L/min) (NC) (13:51 06/02/2016 Karlee POLLARD) (14:14 Salma R.N.) Pulse oximeter (13:51 06/02/2016 Karlee POLLARD) (14:14 Salma R.N.) EKG - ER Stat (13:51 06/02/2016 Karlee POLLARD) (Ack 13:52 PBoerfiordaliza) (13:58 PBoekeegan) CT Thorax w Cont (Yes) (See report) Urgent (15:21 06/02/2016 Karlee POLLARD) (Ack 15:22 Ashley) (15:28 Ashley) MEDICATION ORDERS: GI Cocktail WHITE PO 30 mL with Lidocaine Viscous Mouth/Throat 15 mL, Maalox Plus Oral 15 mL (14:47 06/02/2016 Karlee POLLARD) (14:57 Salma R.N.) Clonidine PO 0.2 mg (NOW) (16:23 06/02/2016 Karlee POLLARD) (16:26 Salma R.N.) Hydrocodone-APAP PO 5/325 mg (NOW) (18:01 06/02/2016 Salma R.N. verbal order read back to Karlee POLLARD) (18:41 Salma R.N.) IV FLUIDS: IV Saline Lock (13:51 06/02/2016 Karlee POLLARD) (14:14 Salma R.N.) IV NS : initial bolus 500 mL (1000 mL/hr), then 125 mL/hr for 4h (NOW); Urgent (14:39 06/02/2016 Karlee POLLARD) (14:46 Salma R.N.) Dilaudid IV 0.5 mg (HIGH ALERT MEDICATION, NOW) (14:39 06/02/2016 Karlee POLLARD) (14:46 Salma R.N.) Zofran IV 4 mg (NOW) (14:39 06/02/2016 Karlee POLLARD) (14:47 Salma R.N.) Dilaudid IV 0.5 mg (may repeat q 15m for a total of 1.5 mg) (15:47 06/02/2016 Salma R.N. verbal order read back to Karlee POLLARD) (15:52 Salma R.N.) ORDER SHEET NOTES: [Electronically signed by Jacquie Rick R.N. (19:20 06/02/2016)] [Electronically signed by Raffaele Gutierrez MD (20:15 06/02/2016)] [Electronically locked/signed by Jacquie Rick R.N. (:20 06/02/2016)]
--- NOTE | 2016-06-02 18:40 | ED ORDER SUMMARY ---
..... Patient: BASIL LOMBARDI OrderSheet [facility] VisitID: [id number] [place] [address] 71y, F Registration Date/Time: 06/02/2016 ORDER SHEET Weight: 79.3 kg (stated) Allergies: No Known Drug Allergy GENERAL ORDERS: Chest 1V Urgent (13:50 06/02/2016 Karlee POLLARD) (Ack 13:52 Ashley) (14:14 EHassan R.N.) Pulley Mortiser Operator (Continuous) (13:51 06/02/2016 Karlee POLLARD) (14:26 EHassan R.N.) CT Head wo Cont Urgent (13:51 06/02/2016 Karlee POLLARD) (Ack 13:52 Ashley) (14:25 PBoepanchoner) CBC w Diff Urgent (13:51 06/02/2016 Karlee POLLARD) (Ack 13:52 Ashley) (14:14 EHassan R.N.) CMP Urgent (13:51 06/02/2016 Karlee POLLARD) (Ack 13:52 Ashley) (14:14 EHassan R.N.) UA-Culture if indicated Urgent (13:51 06/02/2016 Karlee POLLARD) (Ack 13:52 Ashley) (Sent 14:04 EHassan R.N.) (14:14 EHassan R.N.) Amylase Urgent (13:51 06/02/2016 Karlee POLLARD) (Ack 13:52 Ashley) (14:14 EHassan R.N.) Lipase Urgent (13:51 06/02/2016 Karlee POLLARD) (Ack 13:52 Ashley) (14:14 EHassan R.N.) PT with INR Urgent (13:51 06/02/2016 Karlee POLLARD) (Ack 13:52 Ashley) (14:14 EHassarafal R.N.) PTT Urgent (13:51 06/02/2016 Karlee POLLARD) (Ack 13:52 Ashley) (14:14 EHassan R.N.) Oxygen (2 L/min) (NC) (13:51 06/02/2016 Karlee POLLARD) (14:14 Salma R.N.) Pulse oximeter (13:51 06/02/2016 Karlee POLLARD) (14:14 Salma R.N.) EKG - ER Stat (13:51 06/02/2016 Karlee POLLARD) (Ack 13:52 PBoerfiordaliza) (13:58 PBoekeegan) CT Thorax w Cont (Yes) (See report) Urgent (15:21 06/02/2016 Karlee POLLARD) (Ack 15:22 Ashley) (15:28 Ashley) MEDICATION ORDERS: GI Cocktail WHITE PO 30 mL with Lidocaine Viscous Mouth/Throat 15 mL, Maalox Plus Oral 15 mL (14:47 06/02/2016 Karlee POLLARD) (14:57 Salma R.N.) Clonidine PO 0.2 mg (NOW) (16:23 06/02/2016 Karlee POLLARD) (16:26 Salma R.N.) Hydrocodone-APAP PO 5/325 mg (NOW) (18:01 06/02/2016 Salma R.N. verbal order read back to Karlee POLLARD) (18:41 Salma R.N.) IV FLUIDS: IV Saline Lock (13:51 06/02/2016 Karlee POLLARD) (14:14 Salma R.N.) IV NS : initial bolus 500 mL (1000 mL/hr), then 125 mL/hr for 4h (NOW); Urgent (14:39 06/02/2016 Karlee POLLARD) (14:46 Salma R.N.) Dilaudid IV 0.5 mg (HIGH ALERT MEDICATION, NOW) (14:39 06/02/2016 Karlee POLLARD) (14:46 Salma R.N.) Zofran IV 4 mg (NOW) (14:39 06/02/2016 Karlee POLLARD) (14:47 Salma R.N.) Dilaudid IV 0.5 mg (may repeat q 15m for a total of 1.5 mg) (15:47 06/02/2016 Salma R.N. verbal order read back to Karlee POLLARD) (15:52 Salma R.N.) ORDER SHEET NOTES: [Electronically signed by Jacquie Rick R.N. (19:20 06/02/2016)] [Electronically signed by Raffaele Gutierrez MD (20:15 06/02/2016)] [Electronically locked/signed by Jacquie Rick R.N. (:20 06/02/2016)]
--- NOTE | 2016-06-02 20:15 | ED MAR SUMMARY ---
..... Medication Administration Record [facility] [address] [place] [address] Patient: BASIL LOMBARDI Visit ID: [id number] 71y, F Weight: 79.3 kg Height/Length: 61 in BMI: 33 ALLERGIES: No Known Drug Allergy Given 14:45 06/02/2016 Jacquie Rick R.N. Medication Administered: ZOFRAN [IVP] (ONDANSETRON HCL), Dose: 4 mg IVP over 2 minute(s), Site: #1 right AC. Medication Ordered: Zofran IV 4 mg (NOW). Start 14:46 06/02/2016 Jacquie Rick R.N., Stop 15:30 06/02/2016 Jacquie Rick R.N. Medication Administered: IV NS (SALINE), Dose: IV Fluids over 1 hour(s), Rate: 500 mL/hr, Dispensed: 1000 mL bag, Site: #1 right AC. Medication Ordered: IV NS : initial bolus 500 mL (1000 mL/hr), then 125 mL/hr for 4h (NOW); Urgent. Given 14:46 06/02/2016 Jacquie Rick R.N. Medication Administered: DILAUDID [IVP] (HYDROMORPHONE HCL PF), Dose: 0.5 mg IVP over 1 minute(s), Site: #1 right AC. Medication Ordered: Dilaudid IV 0.5 mg (HIGH ALERT MEDICATION, NOW). Given 14:57 06/02/2016 Jacquie Rick R.N. Medication Administered: GI COCKTAIL WHITE [PO] (SIMETHICONE), Dose: 30 mL Oral Suspension PO. Medication Ordered: GI Cocktail WHITE PO 30 mL with Lidocaine Viscous Mouth/Throat 15 mL, Maalox Plus Oral 15 mL. Given 15:52 06/02/2016 Jacquie Rick R.N. Medication Administered: DILAUDID [IVP] (HYDROMORPHONE HCL PF), Dose: 0.5 mg IVP over 1 hour(s), Site: #1 right AC. Medication Ordered: Dilaudid IV 0.5 mg (may repeat q 15m for a total of 1.5 mg). Given 16:26 06/02/2016 Jacquie Rick R.N. Medication Administered: CLONIDINE [PO], Dose: 0.2 mg Tablets PO. Medication Ordered: Clonidine PO 0.2 mg (NOW). Given 18:10 06/02/2016 Jacquie Rick R.N. Medication Administered: HYDROCODONE-APAP [PO] (HYDROCODONE-ACETAMINOPHEN), Dose: 1 tab 5/325 mg Tablets PO. Medication Ordered: Hydrocodone-APAP PO 5/325 mg (NOW).
--- NOTE | 2016-06-02 20:15 | ED MED RECONCILIATION SUMMARY ---
Patient: BASIL LOMBARDI Medication Reconciliation Report [facility] VisitID: [id number] [address] [place] [address] 71y, F Registration Date/Time: 06/02/2016 Weight: 79.3 kg Height/Length: 61 in. BMI: 33.0 ALLERGIES: No Known Drug Allergy The patient's Home Medications are listed below: STOP TAKING THE FOLLOWING MEDICATIONS: MetFORMIN HCl Oral 500 mg, 2x a day CONTINUE TAKING THE FOLLOWING MEDICATIONS: Centrum Silver Oral 1 daily Divalproex Sodium Oral (500 mg) 1 tablet, daily Hydrochlorothiazide Oral (25 mg), daily Magnesium Oral 250mg, daily Prochlorperazine Maleate Oral (10 mg) 1 tablet, 3x a day Rizatriptan Benzoate Oral 10 mg, 2x a day, out Topiramate Oral (50 mg) 1/2 tablet, 2x a day Tylenol Oral 650 mg, PRN The source(s) of the original Home Medication information: Not obtained. The following Medications were given to the patient in the Emergency Department: IV NS IV Fluids bolus 0, then 500 mL/hr, administered: 06/02/2016 2:46:00 PM Dilaudid [IVP] IVP 0.5 mg, administered: 06/02/2016 2:46:00 PM Zofran [IVP] IVP 4 mg, administered: 06/02/2016 2:45:00 PM GI COCKTAIL WHITE [PO] PO 30 mL, administered: 06/02/2016 2:57:00 PM Dilaudid [IVP] IVP 0.5 mg, administered: 06/02/2016 3:52:00 PM Clonidine [PO] PO 0.2 mg, administered: 06/02/2016 4:26:00 PM Hydrocodone-APAP [PO] PO 1 tab, administered: 06/02/2016 6:10:00 PM The following Medications were prescribed to the patient: Omeprazole 20 mg capsules: Take 1 orally once daily. Dispense fifteen (15). No refills. -- Raffaele Gutierrez MD
--- NOTE | 2016-06-02 20:15 | ED MAR SUMMARY ---
..... Medication Administration Record [facility] [address] [place] [address] Patient: BASIL LOMBARDI Visit ID: [id number] 71y, F Weight: 79.3 kg Height/Length: 61 in BMI: 33 ALLERGIES: No Known Drug Allergy Given 14:45 06/02/2016 Jacquie Rick R.N. Medication Administered: ZOFRAN [IVP] (ONDANSETRON HCL), Dose: 4 mg IVP over 2 minute(s), Site: #1 right AC. Medication Ordered: Zofran IV 4 mg (NOW). Start 14:46 06/02/2016 Jacquie Rick R.N., Stop 15:30 06/02/2016 Jacquie Rick R.N. Medication Administered: IV NS (SALINE), Dose: IV Fluids over 1 hour(s), Rate: 500 mL/hr, Dispensed: 1000 mL bag, Site: #1 right AC. Medication Ordered: IV NS : initial bolus 500 mL (1000 mL/hr), then 125 mL/hr for 4h (NOW); Urgent. Given 14:46 06/02/2016 Jacquie Rick R.N. Medication Administered: DILAUDID [IVP] (HYDROMORPHONE HCL PF), Dose: 0.5 mg IVP over 1 minute(s), Site: #1 right AC. Medication Ordered: Dilaudid IV 0.5 mg (HIGH ALERT MEDICATION, NOW). Given 14:57 06/02/2016 Jacquie Rick R.N. Medication Administered: GI COCKTAIL WHITE [PO] (SIMETHICONE), Dose: 30 mL Oral Suspension PO. Medication Ordered: GI Cocktail WHITE PO 30 mL with Lidocaine Viscous Mouth/Throat 15 mL, Maalox Plus Oral 15 mL. Given 15:52 06/02/2016 Jacquie Rick R.N. Medication Administered: DILAUDID [IVP] (HYDROMORPHONE HCL PF), Dose: 0.5 mg IVP over 1 hour(s), Site: #1 right AC. Medication Ordered: Dilaudid IV 0.5 mg (may repeat q 15m for a total of 1.5 mg). Given 16:26 06/02/2016 Jacquie Rick R.N. Medication Administered: CLONIDINE [PO], Dose: 0.2 mg Tablets PO. Medication Ordered: Clonidine PO 0.2 mg (NOW). Given 18:10 06/02/2016 Jacquie Rick R.N. Medication Administered: HYDROCODONE-APAP [PO] (HYDROCODONE-ACETAMINOPHEN), Dose: 1 tab 5/325 mg Tablets PO. Medication Ordered: Hydrocodone-APAP PO 5/325 mg (NOW).
--- NOTE | 2016-06-02 20:15 | ED MED RECONCILIATION SUMMARY ---
Patient: BASIL LOMBARDI Medication Reconciliation Report [facility] VisitID: [id number] [address] [place] [address] 71y, F Registration Date/Time: 06/02/2016 Weight: 79.3 kg Height/Length: 61 in. BMI: 33.0 ALLERGIES: No Known Drug Allergy The patient's Home Medications are listed below: STOP TAKING THE FOLLOWING MEDICATIONS: MetFORMIN HCl Oral 500 mg, 2x a day CONTINUE TAKING THE FOLLOWING MEDICATIONS: Centrum Silver Oral 1 daily Divalproex Sodium Oral (500 mg) 1 tablet, daily Hydrochlorothiazide Oral (25 mg), daily Magnesium Oral 250mg, daily Prochlorperazine Maleate Oral (10 mg) 1 tablet, 3x a day Rizatriptan Benzoate Oral 10 mg, 2x a day, out Topiramate Oral (50 mg) 1/2 tablet, 2x a day Tylenol Oral 650 mg, PRN The source(s) of the original Home Medication information: Not obtained. The following Medications were given to the patient in the Emergency Department: IV NS IV Fluids bolus 0, then 500 mL/hr, administered: 06/02/2016 2:46:00 PM Dilaudid [IVP] IVP 0.5 mg, administered: 06/02/2016 2:46:00 PM Zofran [IVP] IVP 4 mg, administered: 06/02/2016 2:45:00 PM GI COCKTAIL WHITE [PO] PO 30 mL, administered: 06/02/2016 2:57:00 PM Dilaudid [IVP] IVP 0.5 mg, administered: 06/02/2016 3:52:00 PM Clonidine [PO] PO 0.2 mg, administered: 06/02/2016 4:26:00 PM Hydrocodone-APAP [PO] PO 1 tab, administered: 06/02/2016 6:10:00 PM The following Medications were prescribed to the patient: Omeprazole 20 mg capsules: Take 1 orally once daily. Dispense fifteen (15). No refills. -- Raffaele Gutierrez MD
--- NOTE | 2016-06-02 20:15 | ED DISCHARGE INSTRUCTIONS ---
Patient: BASIL LOMBARDI General Instructions [facility] VisitID: [id number] [place] [address] 71y, F Registration Date/Time: 06/02/2016 Chronic migraine headache- poorly controlled and refractory to treatment. Acute gastritis Bilateral upper lobe micronodular parenchymal pattern and mild biapical interstitial scarring. INSTRUCTIONS No driving or operating machinery while taking medication. Sedative medication was given during your visit. Avoid alcohol and NSAIDS. Examples of NSAIDS include aspirin, ibuprofen (Advil) and naproxen (Aleve). Avoid salty and spicy foods. (Do not take your metformin for 2 days as discussed.). Warnings: Further evaluation is necessary. GENERAL WARNINGS: Return or contact your physician immediately if your condition worsens or changes unexpectedly, if not improving as expected, or if other problems arise. Your Current Medications: STOP TAKING THE FOLLOWING MEDICATIONS: MetFORMIN HCl Oral : 500 mg 2x a day. CONTINUE TAKING THE FOLLOWING MEDICATIONS: Centrum Silver Oral : 1 daily. Divalproex Sodium Oral : Tablet Delayed Release 500 mg, 1 tablet daily, prn. Hydrochlorothiazide Oral : Tablet 25 mg, daily. Magnesium Oral : 250mg daily. Prochlorperazine Maleate Oral : Tablet 10 mg, 1 tablet 3x a day. Rizatriptan Benzoate Oral : 10 mg 2x a day, prn, out. Topiramate Oral : Tablet 50 mg, 1/2 tablet 2x a day. Tylenol Oral : 650 mg PRN. Prescription Medications: Omeprazole 20 mg capsules: Take 1 orally once daily. Dispense fifteen (15). No refills. Follow-up: Follow up with a [employer] consultant, pharmacist per diem and neurologist- as recommended by your primary care physician. Understanding of the discharge instructions verbalized by patient and family. ADDITIONAL INFORMATION Migraine Headache Migraine headaches are related to changes in blood flow to the brain. This causes throbbing or constant pain on one or both sides of the head. The pain may last from a few hours to several days. There is usually nausea, vomiting, sensitivity to light and sound, and blurred vision. A migraine attack may be triggered by emotional stress, hormone changes during the menstrual cycle, oral contraceptives, alcohol use, certain foods containing tyramine, eye strain, weather changes, missing meals, or too little or too much sleep. Home Care For This Headache: 1) If you were given pain medicine for this headache, do not drive yourself home . Arrange for a ride, instead. When you get home, try to sleep. You should feel much better when you wake up. 2) Migraine headaches may improve with an ice pack on the forehead or at the base of the skull. Heat to the back of your neck may relieve any neck spasm. 3) Drink only clear liquids or eat a very light diet to avoid nausea/vomiting until symptoms improve. Preventing Future Headaches: 1) Pay attention to those factors that seem to trigger your headache. Try to avoid them when you can. If you have frequent headaches, it is useful to keep a diary of what you were doing, feeling or eating in the hours before each attack. Show this to your doctor to help find the cause of your headaches. a) If you feel that stress is a factor in your headaches, look at the sources of stress in your life. Find ways to release the build-up of those stresses by using regular exercise, relaxation methods (yoga, meditation), bio-feedback or simply taking time-out for yourself. For more information about this, consult your doctor or go to a local bookstore and review books and tapes on this subject. b) Tyramine is a substance present in the following foods : chocolate, yogurt, all cheeses except cottage cheese and cream cheese. smoked or pickled fish and meat (including carr, caviar, bologna, pepperoni, salami), liver, avocados, bananas, figs, raisins, and red wine. Be aware that these foods may trigger a migraine in some persons. Try taking these foods out of your diet for 1-2 months to see if this reduces headache frequency. Treating Future Attacks: 1) At the first sign of a headache, take time out if possible. Find a quiet, dark, comfortable place to sit or lie down. Let yourself relax or sleep. 2) An ice pack on the forehead or area of greatest pain may help. If you are having muscle spasm and tightness of the neck, a heating pad and massage to this area may be helpful. 3) If you have been prescribed a medicine to stop a migraine headache, use this at the very first warning sign of the headache (aura or initial pain) for best results. Follow Up with your doctor if the headache is not better within the next 24 hours. If you have frequent headaches you should discuss a treatment plan with your primary care doctor. Ask if you can have medicine to take at home the next time you get a bad headache. Poorly controlled chronic headaches may require a referral to a neurologist (headache specialist). Get Prompt Medical Attention if any of the following occur: Your head pain gets worse, or does not improve within 24 hours Repeated vomiting (cant keep liquids down) Sinus or ear or throat pain (not already reported) Fever of 100.4 F (38 C) or higher, or as directed by your healthcare provider Stiff neck Extreme drowsiness, confusion or fainting Dizziness, vertigo (dizziness with spinning sensation) Weakness of an arm or leg or one side of the face Difficulty with speech or vision Gastritis Versus Ulcer (No Antibiotic Tx) The symptoms of gastritis and peptic ulcer are very similar. Both can cause a dull ache or burning pain in the upper abdomen. Other symptoms include nausea, vomiting, loss of appetite, and belching or bloating. Blood in the vomit or stools (red or black) is a sign of bleeding in the stomach. This requires immediate medical attention. A Peptic Ulcer is an open sore in the lining of the stomach or duodenum (upper intestine). The most common cause of peptic ulcer disease is a bacterial infection (H pylori) in the stomach. Another common cause is taking anti-inflammatory medications (such as ibuprofen, prednisone, and aspirin). Gastritis is an irritation of the stomach lining. It can be acute (recent) or chronic (lasting a long time). Gastritis can be caused by overuse of alcohol or anti-inflammatory medications (such as aspirin, ibuprofen, prednisone). H pyloriinfection can also cause chronic gastritis. Tests for H pyloriare used to screen for bacterial infection. If no infection is found, ulcer and gastritis can be treated by stopping the cause, such as anti-inflammatory medications, alcohol, caffeine, and tobacco, and treating with antacids plus an acid manolo medication. If H pylori infection is found, antibiotics will be prescribed along with an acid manolo. Persons 55 years and older may undergo other tests before treatment is started. Two common tests are used to evaluate your symptoms. An upper GI series is an x-ray taken after you drink a chalky liquid called barium. This coats the stomach and allows an ulcer to show up on the x-ray. Another test is called endoscopy during which a long thin tube called an endoscope is passed down your throat to the stomach. A camera at the end of the scope allows the doctor to view inside the stomach to check the cause of your symptoms. Home Care: Take the prescribed acid manolo medication for the full course of treatment even if you begin to feel better sooner. This medication can take up to several days to fully control your symptoms. If you cant afford the prescribed medication, you can try [id number] acid blockers, such as Pepcid AC, Tagamet, Zantac, or Aciphex. If these do not relieve your symptoms, a stronger acid-manolo can be tried, such as Prilosec OTC. If you have been prescribed an antibiotic to treat H pyloriinfection, finish the full course of medication. Do so even if you begin to feel better sooner. If you stop the medication too soon, the infection can return and be harder to treat. You can use antacids, such as Tums, Rolaids, Mylanta, or Maalox, for pain. This will be useful the first few days after starting acid blockers when the blockers havent started working yet. Follow the directions on the label. Liquid antacids may work better than tablets. Note that antacids can interfere with absorption of certain medications. Specifically, do not take Tagamet (cimetidine), Zantac (ranitidine), or Carafate (sucralfate) within 1 hour of taking an antacid. Talk with your pharmacist if you have any questions. Although foods do not cause an ulcer, symptoms can be worsened by certain foods. Limit or avoid fatty, fried, and spicy foods, as well as coffee, chocolate, mint, and foods with high acid content such as tomatoes and citrus fruit and juices (orange, grapefruit, lemon). Avoid alcohol, caffeine, and tobacco, which can delay healing. Avoid aspirin and anti-inflammatory medications such as ibuprofen (Advil, Motrin) and naproxen (Naprosyn, Aleve). Acetaminophen (Tylenol) is safe to use. Do not take more than the amount listed on the label. Follow Up with your doctor or as advised. Further testing may be needed. If you do not begin to improve over the next 4 days, contact your doctor. If you had tests, youll be notified of any new findings that affect your care. Get Prompt Medical Attention if any of the following occur: Stomach pain gets worse or moves to the lower right abdomen (appendix area) Chest pain appears or gets worse, or spreads to the back, neck, shoulder, or arm Frequent vomiting (cant keep down liquids) Blood in the stool or vomit (red or black in color) Feeling weak or dizzy, fainting, or trouble breathing Fever of 100.4F (38C) or higher, or as directed by your healthcare provider [place] Diet A bland diet is used for patients with an upset stomach. It consists of foods that are mild and easy to digest. It is better to eat small frequent meals rather than three large meals a day. BEVERAGES OK: Fruit juices, non-caffeinated teas and coffee, non-carbonated pascal AVOID: Carbonated beverage, caffeinated tea and coffee, all alcoholic beverages BREAD OK: Refined white, wheat or rye bread, eric or soda crackers, Prentiss toast, plain rolls, bagels AVOID: Whole-grain bread CEREAL OK: Refined cereals: cooked or ready to eat AVOID: Whole grain cereals and granola, or those containing bran, seeds or nuts DESSERTS OK: Peanut butter and all others except those to "avoid" AVOID: Chocolate, cocoa, coconut, popcorn, nuts, seeds, jam, marmalade FRUITS OK: Canned, cooked, frozen or fresh fruits without seeds or tough skin AVOID: Olives, skin and seeds of fruit MEATS OK: All fresh or preserved meat, fish and fowl AVOID: Any that are prepared with those spices to "avoid" CHEESE & EGGS OK: Eggs, cottage cheese, cream cheese, other cheeses AVOID: All cheeses made with those spices to "avoid" POTATOES & PASTA OK: Potato, rice, macaroni, noodles, spaghetti AVOID: None SOUPS OK: All soups without heavy seasoning AVOID: Soups made with those spices to "avoid" VEGETABLES OK: Canned, cooked, fresh or frozen mildly flavored vegetables without seeds, skins or coarse fiber AVOID: Vegetables prepared with those spices to "avoid"; skin and seeds of vegetables and those with coarse fiber SPICES OK: Salt, lemon and [place] juice, vinegar, all extracts, janis, cinnamon, thyme, mace, allspice, paprika AVOID: Palmer powder, cloves, pepper, seed spices, garlic, gravy pickles, highly seasoned salad dressings Omeprazole Magnesium Gastro-resistant tablet What is this medicine? OMEPRAZOLE (oh ME pray zol) prevents the production of acid in the stomach. It is used to treat the symptoms of heartburn. You can buy this medicine without a prescription. This product is not for long-term use, unless otherwise directed by your doctor or health rn critical care. How should I use this medicine? Take this medicine by mouth. Follow the directions on the product label. If you are taking this medicine without a prescription, take one tablet every day. Do not use for longer than 14 days or repeat a course of treatment more often than every 4 months unless directed by a doctor or healthcare professional. Take your dose at regular intervals every 24 hours. Swallow the tablet whole with a drink of water. Do not crush, break or chew. This medicine works best if taken on an empty stomach 30 minutes before breakfast. If you are using this medicine with the prescription of your doctor or healthcare professional, follow the directions you were given. Do not take your medicine more often than directed. Talk to your jacquard plate maker regarding the use of this medicine in children. Special care may be needed. What side effects may I notice from receiving this medicine? Side effects that you should report to your doctor or health rn critical care as soon as possible: allergic reactions like skin rash, itching or hives, swelling of the face, lips, or tongue bone, muscle or joint pain breathing problems chest pain or chest tightness dark yellow or brown urine diarrhea dizziness fast, irregular heartbeat feeling faint or lightheaded fever or sore throat muscle spasm palpitations redness, blistering, peeling or loosening of the skin, including inside the mouth seizures tremors unusual bleeding or bruising unusually weak or tired yellowing of the eyes or skin Side effects that usually do not require medical attention (Report these to your doctor or health rn critical care if they continue or are bothersome.): constipation dry mouth headache loose stools nausea What may interact with this medicine? Do not take this medicine with any of the following medications: atazanavir clopidogrel nelfinavir This medicine may also interact with the following medications: ampicillin certain medicines for anxiety or sleep certain medicines that treat or prevent blood clots like warfarin cyclosporine diazepam digoxin disulfiram iron salts phenytoin prescription medicine for fungal or yeast infection like itraconazole, ketoconazole, voriconazole saquinavir tacrolimus What if I miss a dose? If you miss a dose, take it as soon as you can. If it is almost time for your next dose, take only that dose. Do not take double or extra doses. Where should I keep my medicine? Keep out of the reach of children. Store at room temperature between 20 and 25 degrees C (68 and 77 degrees F). Protect from light and moisture. Throw away any unused medicine after the expiration date. What should I tell my health care provider before I take this medicine? They need to know if you have any of these conditions: black or bloody stools chest pain difficulty swallowing have had heartburn for over 3 months have heartburn with dizziness, lightheadedness or sweating liver disease stomach pain unexplained weight loss vomiting with blood wheezing an unusual or allergic reaction to omeprazole, other medicines, foods, dyes, or preservatives or trying to get breast-feeding What should I watch for while using this medicine? It can take several days before your heartburn gets better. Check with your doctor or health rn critical care if your condition does not start to get better, or if it gets worse. Do not treat diarrhea with over the counter products. Contact your doctor if you have diarrhea that lasts more than 2 days or if it is severe and watery. Do not treat yourself for heartburn with this medicine for more than 14 days in a row. You should only use this medicine for a 2-week treatment period once every 4 months. If your symptoms return shortly after your therapy is complete, or within the 4 month time frame, call your doctor or health rn critical care. You have been given the following additional information: Headache, Migraine (Classical) Gastritis Vs. Ulcer Diet, [place] (Adult) Omeprazole Magnesium Gastro-resistant tablet No driving or operating machinery while taking medication. Sedative medication was given during your visit. (Electronically signed by Raffaele Gutierrez MD 06/02/2016 20:15)
== END 2016-06-02 18:50 | disposition home or self-care (01) ==
LOC: ED SRH 13:27
DX: G43.719 Chronic migraine without aura, intractable, without status migrainosus (principal); R91.8 Other nonspecific abnormal finding of lung field; K29.00 Acute gastritis without bleeding; E11.9 Type 2 diabetes mellitus without complications; I10 Essential (primary) hypertension; Z79.84 Long term (current) use of oral hypoglycemic drugs; Z79.899 Other long term (current) drug therapy
CPT/HCPCS: 90004; 90100; 92235; 92530; 94001; 94060; 95059